=== PATIENT | male | born 1960 | race Caucasian/White ===

== ENCOUNTER → 2021-04-26 12:51 | Outpatient (CLI) | payer MEDICARE, SELFPAY | PROVIDERS: Visit Provider Nurse Practitioner | DX: Z20.822 Contact with and (suspected) exposure to COVID-19 (principal) | CPT/HCPCS: C9803; U0003; U0005 ==

== ENCOUNTER 2021-06-04 11:04 | Emergency (ER) | payer MEDICARE, SELFPAY ==
[2021-06-04] VITALS (8 sets, daily range): BP systolic 115–134; BP diastolic 67–89; PULSE 61–79; RESP 18–20; TEMP 36.8; O2SAT 96–98; BMI 35.2
--- NOTE | 2021-06-04 10:58 | ECG_ITS ---
APPROVED REPORT Exam: Resting ECG HR:86 bpm ECG Measurements Heart Rate 86 AXES NV 166 P 7 QRSd 92 QRS 11 QT 372 T 44 QTc 445 Conclusion Normal sinus rhythm Normal ECG Electronically signed by : Vasiliy Espinoza MD 06/04/2021 15:34:34
--- NOTE | 2021-06-04 11:15 | XR_ITS ---
PROCEDURE INFORMATION: Exam: XR Chest Exam date and time: 06/04/2021 11:15 AM Age: 61 years old Clinical indication: Pain; Chest pressure; Additional info: Chest pain TECHNIQUE: Imaging protocol: XR of the chest. Views: 1 view. COMPARISON: No relevant prior studies available. FINDINGS: Tubes, catheters and devices: Overlying EKG wires Lungs: Unremarkable. No consolidation. Pleural spaces: Unremarkable. No pleural effusion. No pneumothorax. Heart/Mediastinum: Unremarkable. No cardiomegaly. Bones/joints: Unremarkable. IMPRESSION: No acute process
--- NOTE | 2021-06-04 11:18 | HMH.EDGENADL ---
ED Disposition Clinical Impression: Atypical chest pain, Cutaneous abscess of left knee Disposition: Home, Self-Care Condition on Discharge: Good Instructions: DI for Atypical Chest Pain, DI for Skin Abscess Additional Instructions: You are being provided with a list of physicians available for follow-up of your condition. Please call a physician on this list to arrange a follow-up appointment as soon as possible. For your knee abscess: Clean with soap and water daily. Change bandage daily. Take antibiotic as prescribed. Follow-up if not improving in 2 to 3 days. Additional instructions for CHEST PAIN: See your physician or Dr. Vuong, cardiology, as soon as possible for further evaluation. Call for appointment. Return immediately if worsening chest pain, vomiting, shortness of breath, fever, coughing of blood. Prescriptions: clindamycin HCL [Clindamycin HCl] 300 mg PO QID #28 cap Transmission Status: Received by [id number] Referrals: Ty Anand MD [Primary Care Provider] - Sushant Vuong MD [Staff Physician] - - Critical Care Critical Care Time: No Attestation: On , the high probability of a clinically significant, sudden or life threatening deterioration of the following system(s) required my full and direct attention, intervention and personal management. The time I documented below is in addition to time spent performing reported procedures but includes the following listed in this critical care notation. Medical Decision Making - David Inquiry Pt receiving controlled substance: No Vital Signs: 06/04/21 11:05 06/04/21 12:30 06/04/21 13:00 Temperature 98.3 F Temperature Source Oral Pulse Rate 68 66 Pulse Rate [Radial] 79 Respiratory Rate 18 20 Blood Pressure 120/74 115/68 Blood Pressure [Right Arm] 120/82 Blood Pressure Mean 82 88 Blood Pressure Mean [Right Arm] 94 Blood Pressure Position [Right Arm] Sitting 02 Sat by Pulse Oximetry 96 98 97 Oxygen Delivery Method Room Air - Lab Data Lab Results 06/04/21 11:06: WBC 9.7, RBC 4.85, Hgb 14.9, Hct 44.4, MCV 91.7, MCH 30.6, MCHC 33.4, RDW 13.0, Plt Count 295, MPV 8.1, Neut % (Auto) 76.5, Lymph % (Auto) 15.4, Gem % (Auto) 6.4, Eos % (Auto) 1.1, Baso % (Auto) 0.6, Neut # (Auto) 7.4, Lymph # (Auto) 1.5, Gem # (Auto) 0.6, Eos # (Auto) 0.1, Baso # (Auto) 0.1 06/04/21 11:06: Sodium 138, Potassium 4.2, Chloride 101, Carbon Dioxide 28, Anion Gap 13.2, BUN 19, Creatinine 0.90, Estimated Creat Clear 126, Estimated GFR 85, Est GFR ( Amer) 103, Glucose 227 H, Calcium 9.4, Total Bilirubin 0.6, AST 38, ALT 40, Alkaline Phosphatase 91, Troponin I < 0.01, Total Protein 7.8, Albumin 4.4, Globulin 3.4 H, Albumin/Globulin Ratio 1.3 06/04/21 11:06: D-Dimer 0.77 H 06/04/21 14:14: Troponin I < 0.01 Result diagrams: 06/04/21 11:06 06/04/21 11:06 Orders (Tests/Meds): ED MEDICATIONS Discontinued Medications Generic Name Dose Route Start Last Admin Trade Name Freq PRN Reason Stop Dose Admin Clindamycin HCl 300 mg 06/04/21 14:26 06/04/21 14:34 Clindamycin 150mg Capsule PO 06/04/21 14:27 300 mg ONCE ONE Administration Iopamidol 70 ml 06/04/21 13:17 06/04/21 13:18 Iopamidol-370 (76%);100ml Bottle IV 06/04/21 13:18 70 ml ONCE ONE Administration Sodium Chloride 50 ml 06/04/21 13:17 06/04/21 13:18 0.9 % Sodium Chloride 50 Ml Vial IV 06/04/21 13:18 50 ml ONCE ONE Administration Sodium Chloride 10 ml 06/04/21 13:17 06/04/21 13:18 Sodium Chloride 0.9% 10ml Syr (Rad Only) IV 06/04/21 13:18 10 ml ONCE ONE Administration ORDERS Category Date Time Status Troponin I Q3H Lab 06/04/21 17:15 Ordered - CT Data CT Scan: Chest (CTA) Time Received: 13:[address] Reviewed: Yes: I have viewed the radiologist's interpretation Findings Narrative: PROCEDURE INFORMATION: Exam: CTA Chest With Contrast Exam date and time: 06/04/2021 12:09 PM Age: 61 years old
[2021-06-04 11:22] LABS: Basophils # 0.1 K/mm3 (0-0.2); Basophils % 0.6 % (0.1-2.0); Eosinophils # 0.1 K/mm3 (0.0-0.4); Eosinophils % 1.1 % (0.1-12.0); Hematocrit 44.4 % (42.0-52.0); Hemoglobin 14.9 g/dL (14.1-18.0); Lymphocytes # 1.5 K/mm3 (0.7-4.5); Lymphocytes % 15.4 % (10-50); Mean Corpuscular HGB Conc 33.4 g/dL (31.8-35.4); Mean Corpuscular Hemoglobin 30.6 pg (27.0-31.2); Mean Corpuscular Volume 91.7 fl (80-94); Mean Platelet Volume 8.1 fl (7.4-10.4); Monocytes # 0.6 K/mm3 (0.1-1.0); Monocytes % 6.4 % (1.7-9.3); Neutrophils # 7.4 K/mm3 (1.8-7.8); Neutrophils % 76.5 % (37.0-80.0); Platelet Count 295 K/mm3 (142-424); Red Blood Count 4.85 M/mm3 (4.60-6.20); White Blood Count 9.7 K/mm3 (4.8-10.8)
[2021-06-04 11:23] LABS: Chloride 101 mmol/L (98-107); Potassium 4.2 mmoL/L (3.5-5.1); Sodium 138 mmol/L (136-145)
[2021-06-04 11:26] LABS: Alanine Aminotransferase 40 U/L (12-78); Albumin Level 4.4 g/dl (3.5-5.0); Albumin/Globulin Ratio 1.3 (1.1-1.8); Alkaline Phosphatase 91 U/L (38-126); Anion Gap 13.2 mEq/L (5-15); Aspartate Amino Transferase 38 U/L (17-59); Bilirubin,Total 0.6 mg/dl (0.2-1.3); Blood Urea Nitrogen 19 mg/dl (9-20); Carbon Dioxide 28 mmol/L (22.0-30.0); Creatinine Clearance Estimated 126 mL/min (50-200); Estimated Glomerular Filt Rate 85 ml/min (>60); GFR (African American) 103 ML/MIN (>60); Globulin 3.4 g/dL (1.3-3.2); Total Protein,Serum 7.8 g/dl (6.3-8.2)
[2021-06-04 11:27] LABS: Calcium 9.4 mg/dl (8.4-10.2); Glucose 227 mg/dl (74-100)
[2021-06-04 11:39] LABS: Troponin I < 0.01 ng/ml (0.00-0.034)
[2021-06-04 11:58] LABS: D-Dimer 0.77 ug/mL (0.0-0.5)
--- NOTE | 2021-06-04 12:09 | CT_ITS ---
PROCEDURE INFORMATION: Exam: CTA Chest With Contrast Exam date and time: 06/04/2021 12:09 PM Age: 61 years old Clinical indication: Pain; Chest pressure; Additional info: Pleuritic cp, elev d-dimer, R/O pe TECHNIQUE: Imaging protocol: Computed tomographic angiography of the chest with contrast. 3D rendering (Not supervised by radiologist): MIP and/or 3D reconstructed images were created by the technologist. Radiation optimization: All CT scans at this facility use at least one of these dose optimization techniques: automated exposure control; mA and/or kV adjustment per patient size (includes targeted exams where dose is matched to clinical indication); or iterative reconstruction. Contrast material: ISOVUE; Contrast volume: 70 ml; Contrast route: INTRAVENOUS (IV); COMPARISON: CR XR CHEST PORTABLE 06/04/2021 12:42 PM FINDINGS: Pulmonary arteries: No evidence of pulmonary embolus to the segmental level. Aorta: No aneurysm of the aorta. No dissection of the aorta. Lungs: Mild opacities in the lingula may represent atelectasis Pleural spaces: Unremarkable. No pneumothorax. No pleural effusion. Heart: Unremarkable. No cardiomegaly. No pericardial effusion. Lymph nodes: Unremarkable. No enlarged lymph nodes. Kidneys and ureters: 11 mm simple cyst lateral right kidney. . No follow-up imaging recommended . Bones/joints: Broad-based disc bulge at L1/L2 may represent degenerative disc disease Soft tissues: Unremarkable. IMPRESSION: 1. No evidence of pulmonary embolus to the segmental level. 2. No aneurysm of the aorta. 3. No dissection of the aorta. COMMENTS: Consistent with the [employer]'s Incidental Findings Committee white paper (J Am Davion Radiol 2018): Any incidental renal lesion less than 1 cm or classified as too small to characterize, or any incidental cystic renal lesion characterized as simple-appearing, is likely benign. No follow-up imaging is recommended for these lesions per consensus recommendations based on imaging criteria.
[2021-06-04 14:46] LABS: Troponin I < 0.01 ng/ml (0.00-0.034)
== END 2021-06-04 15:16 | disposition home or self-care (01) ==
PROVIDERS: Emergency Provider Emergency Medicine; PCP Family Medicine
DX: L02.416 Cutaneous abscess of left lower limb (principal); R07.89 Other chest pain
CPT/HCPCS: 10060; 71045; 71275; 80053; 84484; 85025; 85378; 87070; 87077; 87186; 87205; 93005; 99283; Q9967

== ENCOUNTER → 2021-08-02 14:56 | Outpatient (CLI) | payer MEDICARE, SELFPAY | PROVIDERS: Visit Provider Nurse Practitioner | DX: Z20.822 Contact with and (suspected) exposure to COVID-19 (principal) | CPT/HCPCS: C9803; U0003; U0005 ==

== ENCOUNTER → 2021-08-03 15:35 | Outpatient (CLI) | payer MEDICARE, SELFPAY ==
--- NOTE | 2021-08-03 15:38 | XR_ITS ---
FINAL REPORT CLINICAL HISTORY: chronic ulcer FINDINGS: RIGHT FOOT Three views of the right foot demonstrate no acute fracture or dislocation. There are mild degenerative changes. There is no acute bony erosion. There are small calcaneal spurs. There are calcifications in the region of the distal Achilles tendon. The soft tissues are unremarkable. IMPRESSION: No acute bony abnormality. Reviewed, Interpreted and Dictated by Eyal Mcdaniels III, MD Transcribed by Marlin Mcginnis Authenticated by Eyal Mcdaniels III, MD on 08/03/2021 04:12:05 PM [facility]
== END ==
PROVIDERS: PCP Internal Medicine Adolescent Medicine; Visit Provider Podiatrist
DX: Z51.89 Encounter for other specified aftercare (principal); M79.671 Pain in right foot
CPT/HCPCS: 73630

== ENCOUNTER 2021-08-26 17:31 | Emergency (ER) | payer MEDICARE, SELFPAY ==
[2021-08-26] VITALS (11 sets, daily range): BP systolic 80–130; BP diastolic 58–78; PULSE 64–110; RESP 11–18; TEMP 37.2–39.3; O2SAT 93–97; BMI 22.4
--- NOTE | 2021-08-26 17:47 | XR_ITS ---
PROCEDURE INFORMATION: Exam: XR Chest Exam date and time: 08/26/2021 5:47 PM Age: 61 years old Clinical indication: Pain; Chest pressure; Additional info: Cp, weakness TECHNIQUE: Imaging protocol: XR of the chest. Views: 1 view. Total images: 1 COMPARISON: CR XR CHEST PORTABLE 06/04/2021 12:42 PM FINDINGS: Lungs: Normal pulmonary expansion. Pulmonary vasculature grossly normal. Questionable patchy alveolar densities in the left base suspicious for atelectasis or pneumonia Pleural spaces: No pleural effusion. No pneumothorax. Heart/Mediastinum: Heart size normal. No tracheal/mediastinal shift. Bones/joints: No acute osseous abnormalities are identified. IMPRESSION: Questionable patchy alveolar density in the left base, atelectasis versus pneumonia.
--- NOTE | 2021-08-26 17:47 | ECG_ITS ---
APPROVED REPORT Exam: Resting ECG HR:114 bpm ECG Measurements Heart Rate 114 AXES KS 162 P 34 QRSd 96 QRS 83 QT 331 T 5 QTc 399 Conclusion SINUS TACHYCARDIA INFERIOR MYOCARDIAL INFARCTION , PROBABLY OLD [40+ ms Q WAVE AND/OR ST/T ABNORMALITY IN II/aVF] ABNORMAL ECG UNCONFIRMED REPORT Electronically signed by : Vasiliy Espinoza MD 08/27/2021 14:33:50
[2021-08-26 17:56] LABS: Basophils # 0.1 K/mm3 (0-0.2); Basophils % 0.5 % (0.1-2.0); Eosinophils # 0.1 K/mm3 (0.0-0.4); Eosinophils % 0.8 % (0.1-12.0); Hematocrit 46.5 % (42.0-52.0); Hemoglobin 15.6 g/dL (14.1-18.0); Lymphocytes # 0.6 K/mm3 (0.7-4.5); Mean Corpuscular HGB Conc 33.6 g/dL (31.8-35.4); Mean Corpuscular Hemoglobin 30.6 pg (27.0-31.2); Mean Corpuscular Volume 91.1 fl (80-94); Mean Platelet Volume 7.8 fl (7.4-10.4); Monocytes # 0.5 K/mm3 (0.1-1.0); Monocytes % 3.5 % (1.7-9.3); Neutrophils # 11.5 K/mm3 (1.8-7.8); Neutrophils % 90.1 % (37.0-80.0); Platelet Count 232 K/mm3 (142-424); Red Blood Count 5.11 M/mm3 (4.60-6.20); Red Cell Distribution Width 13.1 % (11.5-17.5); White Blood Count 12.7 K/mm3 (4.8-10.8)
[2021-08-26 17:59] LABS: MANUAL DIFFERENTIAL MANUAL DIFFERENTIAL (MANUAL DIFF)
[2021-08-26 18:01] LABS: Chloride 103 mmol/L (98-107)
[2021-08-26 18:02] LABS: Potassium 3.9 mmoL/L (3.5-5.1); Sodium 133 mmol/L (136-145)
[2021-08-26 18:04] LABS: Alanine Aminotransferase 50 U/L (12-78); Alkaline Phosphatase 91 U/L (38-126); Aspartate Amino Transferase 45 U/L (17-59); Bilirubin,Total 1.1 mg/dl (0.2-1.3); Blood Urea Nitrogen 19 mg/dl (9-20); Creatinine Clearance Estimated 80 mL/min (50-200); Estimated Glomerular Filt Rate 85 ml/min (>60); GFR (African American) 103 ML/MIN (>60)
[2021-08-26 18:05] LABS: Albumin Level 4.5 g/dl (3.5-5.0); Albumin/Globulin Ratio 1.2 (1.1-1.8); Anion Gap 10.9 mEq/L (5-15); Calcium 8.6 mg/dl (8.4-10.2); Carbon Dioxide 23 mmol/L (22.0-30.0); Globulin 3.8 g/dL (1.3-3.2); Glucose 114 mg/dl (74-100); Total Protein,Serum 8.3 g/dl (6.3-8.2)
--- NOTE | 2021-08-26 18:15 | HMH.EDGENADL ---
ED Disposition Condition on Discharge: Good - Critical Care Critical Care Time: No <Rian Villanueva - Last Filed: 08/26/21 20:24> Condition on Discharge: Good <Dennis Jacques - Last Filed: 08/26/21 22:28> Clinical Impression: Fever Qualifiers: Fever type: unspecified Qualified Code(s): R50.9 - Fever, unspecified Chest pain Qualifiers: Chest pain type: unspecified Qualified Code(s): R07.9 - Chest pain, unspecified Disposition: Home, Self-Care Additional Instructions: Please return to the ED with any new or worsening symptoms. Prescriptions: Cefdinir [Omnicef 300mg Capsule] 300 mg PO BID #14 cap Transmission Status: Pending to [id number] Referrals: Vasiliy Espinoza MD [Primary Care Provider] - Attestation: On 08/26/21, the high probability of a clinically significant, sudden or life threatening deterioration of the following system(s) required my full and direct attention, intervention and personal management. The time I documented below is in addition to time spent performing reported procedures but includes the following listed in this critical care notation. Medical Decision Making - David Inquiry Pt receiving controlled substance: No - Lab Data Result diagrams: 08/26/21 17:35 08/26/21 17:35 - Radiology Data #1 Image(s): Chest Image Reviewed: Yes I reviewed the patient's radiology image, Yes I have reviewed radiologist's interpretation - CT Data CT Scan: Chest Time Received: 20:[address] Reviewed: Yes: I have viewed the radiologist's interpretation - Physician Consults Physician Consulted: Carolann Time: 18:50 Reason -: Cardiology Eval/Care Comment/Response: EKG transmitted to him along with old EKG and he has reviewed. Requests CT angiogram of chest. Additional Consult: Navi Time: 19:15 Reason -: Pt condition Additional Consult: Carolann Time: 20:20 Reason -: Cardiology Eval/Care Comment/Response: Advised of negative CTA. From a cardiology standpoint, he feels patient can be discharged if second troponin is normal if there is no other reason to admit regarding his fever. <Rian Villanueva - Last Filed: 08/26/21 20:24> - Medical Records Medical records reviewed: Yes: I reviewed the patient's medical records. - Lab Data Result diagrams: 08/26/21 17:35 08/26/21 17:35 <Dennis Jacques - Last Filed: 08/26/21 22:28> Vital Signs: 08/26/21 17:31 08/26/21 18:00 08/26/21 19:00 Temperature 102.8 F H Temperature Source Oral Pulse Rate 108 H 107 H Pulse Rate [Right Radial] 110 H Respiratory Rate 18 14 13 Blood Pressure 125/74 107/65 L Blood Pressure [Right Arm] 130/78 Blood Pressure Mean [Right Arm] 95 Blood Pressure Source Blood Pressure Source [Right Arm] Automatic Cuff Blood Pressure Position Blood Pressure Position [Right Arm] Sitting 02 Sat by Pulse Oximetry 94 L 93 L 93 L Oxygen Delivery Method Room Air Nasal Cannula Room Air Oxygen Flow Rate (LPM) 2 08/26/21 19:31 08/26/21 20:02 08/26/21 20:30 Temperature Temperature Source Pulse Rate 88 98 H 64 Pulse Rate [Right Radial] Respiratory Rate 15 12 Blood Pressure 99/64 L 80/60 L 93/63 L Blood Pressure [Right Arm] Blood Pressure Mean [Right Arm] Blood Pressure Source Manual Cuff/ Auscultation Blood Pressure Source [Right Arm] Blood Pressure Position Sitting Blood Pressure Position [Right Arm] 02 Sat by Pulse Oximetry 95 93 L 94 L Oxygen Delivery Method Room Air Room Air Oxygen Flow Rate (LPM) 08/26/21 21:01 08/26/21 21:08 08/26/21 21:30 Temperature 99.4 F Temperature Source Oral Pulse Rate 86 67 Pulse Rate [Right Radial] Respiratory Rate 12 18 Blood Pressure 92/62 L 92/63 L Blood Pressure [Right Arm] Blood Pressure Mean [Right Arm] Blood Pressure Source Blood Pressure Source [Right Arm] Blood Pressure Position Blood Pressure Position [Right Arm] 02 Sat by Pulse Oximetry 97 96 Oxygen Delivery Method Room Air R
[2021-08-26 18:17] LABS: Troponin I 0.02 ng/ml (0.00-0.034)
[2021-08-26 18:18] LABS: Lymphocytes % 4 % (10-50); Monocytes % 1 % (2-9); Neutrophils % 86 % (42-76); Platelet Estimate Normal; RBC Morphology Normal; Total Cells Counted 100
--- NOTE | 2021-08-26 18:53 | CT_ITS ---
PROCEDURE INFORMATION: Exam: CTA Chest With Contrast Exam date and time: 08/26/2021 6:53 PM Age: 61 years old Clinical indication: Sternal or substernal pain; Prior surgery; Surgery date: 6+ months; Surgery type: Cardiac stents; Additional info: Cp, R/O pe TECHNIQUE: Imaging protocol: Computed tomographic angiography of the chest with contrast. 3D rendering (Not supervised by radiologist): MIP and/or 3D reconstructed images were created by the technologist. Total images: 323 Radiation optimization: All CT scans at this facility use at least one of these dose optimization techniques: automated exposure control; mA and/or kV adjustment per patient size (includes targeted exams where dose is matched to clinical indication); or iterative reconstruction. Contrast material: ISOVUE 370; Contrast volume: 70 ml; Contrast route: INTRAVENOUS (IV); COMPARISON: CT ANGIO CHEST PE PROTOCOL 06/04/2021 1:14 PM FINDINGS: Pulmonary arteries: The pulmonary arteries enhance appropriately with no evidence of pulmonary embolism. Aorta: The aorta enhances appropriately without evidence of dissection or aneurysm. No mediastinal hematoma. Thyroid: The visualized thyroid gland demonstrates no gross abnormality. Lungs: No acute tracheobronchial abnormalities. No gross pulmonary infiltrates or edema pattern. Minor subsegmental atelectasis in the lingula and dependent lung bases. No pulmonary mass lesions are identified. Pleural spaces: No pleural effusion. No pneumothorax. Heart: Heart size normal. Hyperdensity in the proximal RCA consistent with prior stent placement. The distal vessel enhances appropriately without gross evidence of stent occlusion. Mild calcific atherosclerosis in the LAD. No pericardial effusion. Mediastinal space: The esophagus is largely contracted but demonstrates no gross abnormality. Lymph nodes: No supraclavicular or axillary adenopathy. No mediastinal or hilar adenopathy. Borderline enlarged periportal nodes measuring up to 10 mm short axis, nonspecific. Pancreas: Moderate fatty atrophy of the pancreas without acute abnormality. No pancreatic ductal dilatation. Bones/joints: No acute osseous abnormalities are identified. Osteopenia. Moderate thoracic spondylosis. Soft tissues: The soft tissues of the chest wall demonstrate no acute abnormality. IMPRESSION: 1. No evidence of pulmonary embolism or aortic dissection. 2. No acute process is evident. 3. Borderline enlarged periportal nodes, nonspecific. 4. Additional nonemergent findings detailed above.
[2021-08-26 19:52] LABS: Lactic Acid 1.4 mmol/L (0.7-2.1)
[2021-08-26 20:08] LABS: Coronavirus 19, PCR Not Detected (NotDetected); Influenza A, PCR Not Detected (NotDetected); Influenza B, PCR Not Detected (NotDetected)
[2021-08-26 20:20] LABS: Microscopic, Urine URINE MICROSCOPIC (MICROSCOPIC)
[2021-08-26 20:22] LABS: Appearance,Urine SL CLOUDY (Clear); Bilirubin,Urine Negative (Negative); Blood, Urine Negative (Negative); Color,Urine YELLOW (Yellow); Glucose,Urine (UA) Negative (Negative); Ketones,Urine Negative (Negative); Leukocyte Esterase,Urine Negative (Negative); Nitrate,Urine Negative (Negative); PH,Urine 5.5 (5.0-8.5); Protein,Urine TRACE (Negative); Urobilinogen,Urine 0.2 EU/dl (0.2)
[2021-08-26 20:32] LABS: Bacteria,Urine Trace /lpf; RBC,Urine Occasional #/hpf (0-3); Squamous Epithelial Cell,Urine Occasional #/hpf (0-5)
[2021-08-26 20:33] LABS: Sperm,Urine 3+ /lpf
[2021-08-26 21:42] LABS: Troponin I 0.04 ng/ml (0.00-0.034)
--- NOTE | 2021-08-26 22:16 | PC.NURSE ---
KEILA DURAN speaking with Dr. Vuong.
== END 2021-08-26 22:51 | disposition home or self-care (01) ==
PROVIDERS: Emergency Medicine; Emergency Provider Student in an Organized Health Care Education/Training Program; PCP Internal Medicine Adolescent Medicine
DX: R07.9 Chest pain, unspecified (principal); R42 Dizziness and giddiness; Z20.822 Contact with and (suspected) exposure to COVID-19; I10 Essential (primary) hypertension; E78.5 Hyperlipidemia, unspecified
CPT/HCPCS: 71045; 71275; 80053; 81001; 83605; 84484; 85007; 85025; 87040; 93005; 99283; C9803; J0696; U0003; U0005

== ENCOUNTER 2021-08-27 04:55 | Emergency (ER) | payer MEDICARE, SELFPAY ==
[2021-08-27 04:57] VITALS: BP 164/106; PULSE 103; RESP 18; TEMP 37; O2SAT 99; BMI 35.9
--- NOTE | 2021-08-27 05:05 | ECG_ITS ---
APPROVED REPORT Exam: Resting ECG HR:89 bpm ECG Measurements Heart Rate 89 AXES ME 178 P 16 QRSd 105 QRS 59 QT 374 T 57 QTc 420 Conclusion SINUS RHYTHM NORMAL ECG UNCONFIRMED REPORT Electronically signed by : Vasiliy Espinoza MD 08/30/2021 21:12:11
[2021-08-27 05:18] LABS: Basophils # 0.1 K/mm3 (0-0.2); Basophils % 0.8 % (0.1-2.0); Eosinophils # 0.2 K/mm3 (0.0-0.4); Eosinophils % 1.7 % (0.1-12.0); Hematocrit 48.9 % (42.0-52.0); Hemoglobin 15.7 g/dL (14.1-18.0); Lymphocytes # 0.8 K/mm3 (0.7-4.5); Lymphocytes % 7.3 % (10-50); Mean Corpuscular HGB Conc 32.1 g/dL (31.8-35.4); Mean Corpuscular Hemoglobin 30.1 pg (27.0-31.2); Mean Corpuscular Volume 93.8 fl (80-94); Mean Platelet Volume 7.9 fl (7.4-10.4); Monocytes # 0.3 K/mm3 (0.1-1.0); Monocytes % 2.4 % (1.7-9.3); Neutrophils # 10.1 K/mm3 (1.8-7.8); Neutrophils % 87.9 % (37.0-80.0); Platelet Count 202 K/mm3 (142-424); Red Blood Count 5.21 M/mm3 (4.60-6.20); Red Cell Distribution Width 13.3 % (11.5-17.5); White Blood Count 11.5 K/mm3 (4.8-10.8)
[2021-08-27 05:20] LABS: MANUAL DIFFERENTIAL MANUAL DIFFERENTIAL (MANUAL DIFF)
[2021-08-27 05:26] LABS: Lymphocytes % 10 % (10-50); Monocytes % 2 % (2-9); Neutrophils % 81 % (42-76); Total Cells Counted 100
[2021-08-27 05:27] LABS: Platelet Estimate Normal; RBC Morphology Normal
[2021-08-27 05:29] LABS: Anion Gap 12.7 mEq/L (5-15); Blood Urea Nitrogen 25 mg/dl (9-20); Calcium 8.7 mg/dl (8.4-10.2); Carbon Dioxide 28 mmol/L (22.0-30.0); Chloride 102 mmol/L (98-107); Creatinine Clearance Estimated 129 mL/min (50-200); Estimated Glomerular Filt Rate 75 ml/min (>60); GFR (African American) 91 ML/MIN (>60); Glucose 148 mg/dl (74-100); Potassium 3.7 mmoL/L (3.5-5.1); Sodium 139 mmol/L (136-145)
[2021-08-27 05:30] VITALS: BP 121/65; PULSE 84; RESP 15; O2SAT 99
--- NOTE | 2021-08-27 05:30 | HMH.EDGENADL ---
ED Disposition Clinical Impression: Chills, Atypical chest pain Disposition: Admitted As Inpatient Condition on Discharge: Good Additional Instructions: Please return to the ED with any new or worsening symptoms. Referrals: Vasiliy Espinoza MD [Primary Care Provider] - - Critical Care Critical Care Time: No Attestation: On , the high probability of a clinically significant, sudden or life threatening deterioration of the following system(s) required my full and direct attention, intervention and personal management. The time I documented below is in addition to time spent performing reported procedures but includes the following listed in this critical care notation. Medical Decision Making - Medical Records Medical records reviewed: Yes: I reviewed the patient's medical records. - David Inquiry Pt receiving controlled substance: No Vital Signs: 08/27/21 04:57 08/27/21 05:30 Temperature 98.6 F Temperature Source Oral Pulse Rate 84 Pulse Rate [Left Radial] 103 H Respiratory Rate 18 15 Blood Pressure 121/65 Blood Pressure [Right Arm] 164/106 H Blood Pressure Mean [Right Arm] 125 Blood Pressure Source Automatic Cuff Blood Pressure Position Sitting Blood Pressure Position [Right Arm] Sitting 02 Sat by Pulse Oximetry 99 99 Oxygen Delivery Method Room Air Nasal Cannula Oxygen Flow Rate (LPM) 2 - Lab Data Lab Results 08/27/21 05:11: WBC 11.5 H, RBC 5.21, Hgb 15.7, Hct 48.9, MCV 93.8, MCH 30.1, MCHC 32.1, RDW 13.3, Plt Count 202, MPV 7.9, Neut % (Auto) 87.9 H, Lymph % (Auto) 7.3 L, [place] % (Auto) 2.4, Eos % (Auto) 1.7, Baso % (Auto) 0.8, Neut # (Auto) 10.1 H, Lymph # (Auto) 0.8, [place] # (Auto) 0.3, Eos # (Auto) 0.2, Baso # (Auto) 0.1, Total Counted 100, Neutrophils % (Manual) 81 H, Band Neutrophils % 7.0, Lymphocytes % (Manual) 10, Monocytes % (Manual) 2, Platelet Estimate Normal, RBC Morphology Normal 08/27/21 05:11: Sodium 139, Potassium 3.7, Chloride 102, Carbon Dioxide 28, Anion Gap 12.7, BUN 25 H D, Creatinine 1.00, Estimated Creat Clear 129, Estimated GFR 75, Est GFR ( Amer) 91, Glucose 148 H D, Calcium 8.7, Troponin I 0.02 Result diagrams: 08/27/21 05:11 08/27/21 05:11 Orders (Tests/Meds): ORDERS Category Date Time Status Troponin I Q3H Lab 08/27/21 08:15 Ordered Troponin I Q3H Lab 08/27/21 11:15 Ordered Medical Decision Narrative: Pt is a 61 year old male who presents the ED today for evaluation of chills, hypertension. Patient with recent stay in the emergency department with extensive work-up, still relatively well-appearing today, however appears more tired this morning, endorsing some chest discomfort, rigors this morning. Vague and reviewed patient with no evidence of fever source of physical exam had extensive chest work-up yesterday with no evidence of pneumonia, has a small toe wound which is unlikely to be causing his symptoms, and viral panel was negative yesterday, only positive for a UTI. Will further evaluate with CBC, CMP, troponin Troponin similar to yesterday's evaluation at 0.02, other lab evaluation actually is improved from yesterday white count slightly decreased as well as neutrophil count. Blood pressure on reassessment has come down to 120/86 without intervention. Have considered admitting for inpatient monitoring, however given the patient has remained stable with no alterations of vital signs, no change for the worse on his blood work, and extensive work-up yesterday doubt there is anything that would be able to be done for him inpatient, has spoken with Dr. Mcelroy about this as well, as he is familiar with the case from yesterday, and he agrees. We will have patient go home, I will personally follow-up with him later this afternoon to ensure that he is doing well. Given return precautions return to the ED with new or worsening symptoms and is verbalized understanding with this plan. General Adult HPI - General Chief complaint: Chest Pain Stated
[2021-08-27 05:41] LABS: Troponin I 0.02 ng/ml (0.00-0.034)
--- NOTE | 2021-08-27 05:55 | PC.NURSE ---
paging chapin at this time
[2021-08-27 06:00] VITALS: BP 124/69; PULSE 81; RESP 17; O2SAT 96
[2021-08-27 06:34] VITALS: BP 123/70; PULSE 80; RESP 17; TEMP 36.8; O2SAT 94
== END 2021-08-27 06:42 | disposition home or self-care (01) ==
LOC: ER 05:35
PROVIDERS: Emergency Provider Student in an Organized Health Care Education/Training Program; PCP Internal Medicine Adolescent Medicine
DX: R07.89 Other chest pain (principal); I10 Essential (primary) hypertension; I25.10 Atherosclerotic heart disease of native coronary artery without angina pectoris; E78.5 Hyperlipidemia, unspecified
CPT/HCPCS: 80048; 84484; 85007; 85025; 93005; 99283

== ENCOUNTER → 2021-08-28 09:00 | Outpatient (CLI) | payer MEDICARE, SELFPAY ==
[2021-08-28 09:33] LABS: Basophils # 0.2 K/mm3 (0-0.2); Basophils % 2.9 % (0.1-2.0); Eosinophils # 0.2 K/mm3 (0.0-0.4); Eosinophils % 3.2 % (0.1-12.0); Hematocrit 44.8 % (42.0-52.0); Hemoglobin 14.4 g/dL (14.1-18.0); Lymphocytes # 1.4 K/mm3 (0.7-4.5); Lymphocytes % 23.9 % (10-50); Mean Corpuscular HGB Conc 32.1 g/dL (31.8-35.4); Mean Corpuscular Hemoglobin 30.1 pg (27.0-31.2); Monocytes # 0.6 K/mm3 (0.1-1.0); Neutrophils # 3.4 K/mm3 (1.8-7.8); Neutrophils % 59.9 % (37.0-80.0); Platelet Count 201 K/mm3 (142-424); Red Blood Count 4.76 M/mm3 (4.60-6.20); Red Cell Distribution Width 13.3 % (11.5-17.5); White Blood Count 5.7 K/mm3 (4.8-10.8)
[2021-08-28 10:14] LABS: Chloride 104 mmol/L (98-107); Potassium 4.3 mmoL/L (3.5-5.1); Sodium 135 mmol/L (136-145)
[2021-08-28 10:17] LABS: Alanine Aminotransferase 37 U/L (12-78); Albumin Level 3.9 g/dl (3.5-5.0); Albumin/Globulin Ratio 1.3 (1.1-1.8); Alkaline Phosphatase 67 U/L (38-126); Anion Gap 9.3 mEq/L (5-15); Aspartate Amino Transferase 39 U/L (17-59); Bilirubin,Total 0.4 mg/dl (0.2-1.3); Blood Urea Nitrogen 15 mg/dl (9-20); Carbon Dioxide 26 mmol/L (22.0-30.0); Estimated Glomerular Filt Rate 98 ml/min (>60); GFR (African American) 118 ML/MIN (>60); Globulin 3.1 g/dL (1.3-3.2)
[2021-08-28 10:18] LABS: Calcium 8.1 mg/dl (8.4-10.2); Glucose 136 mg/dl (74-100)
[2021-08-28 10:22] LABS: C-Reactive Protein 47.9 mg/L (0-4)
[2021-08-28 10:46] LABS: Hemoglobin A1C 6.4 % (4.0-6.0)
[2021-08-28 10:48] LABS: Erythrocyte Sedimentation Rate 22 mm/hr (0-20)
== END ==
PROVIDERS: PCP Internal Medicine Adolescent Medicine; Visit Provider Podiatrist
DX: R73.9 Hyperglycemia, unspecified (principal); Z51.89 Encounter for other specified aftercare; L97.519 Non-pressure chronic ulcer of other part of right foot with unspecified severity
CPT/HCPCS: 36415; 80053; 83036; 85025; 85651; 86140; 87070; 87077; 87102; 87186; 87205; 87206

== ENCOUNTER → 2021-09-01 07:48 | Outpatient (CLI) | payer MEDICARE, SELFPAY ==
--- NOTE | 2021-09-01 07:48 | MR_ITS ---
FINAL REPORT CLINICAL HISTORY: non-healing ulcer, 2nd toe @ tip pf toe x's 1 year. pt is not a diabetic. FINDINGS: Multiplanar MR imaging of the right foot was performed with and without contrast. There is bone marrow edema in the distal second phalanx which may be reactive. There is no evidence of marrow replacement on the T1-weighted images to suggest osteomyelitis. There are mild degenerative changes of the first metatarsophalangeal joint. There is thickening of the posterior plantar aponeurosis consistent with plantar fasciitis. There is also thickening of the distal Achilles tendon consistent with tendinitis with a partial insertional tear. There is contrast enhancement of the distal second toe consistent with inflammation or cellulitis. IMPRESSION: No evidence to suggest osteomyelitis. Plantar fasciitis. Distal Achilles tendinitis with a partial insertional tear. Inflammation or cellulitis of the distal second toe. Reviewed, Interpreted and Dictated by Eyal Mcdaniels III, MD Transcribed by Emiliana Holman Authenticated by Eyal Mcdaniels III, MD on 09/01/2021 09:51:33 AM [facility]
--- NOTE | 2021-09-01 08:03 | US_ITS ---
FINAL REPORT CLINICAL HISTORY: non healing ulcer,REST PAIN, CLAUDICATION,CAD FINDINGS: ANKLE-BRACHIAL PRESSURE INDICES Pressure indices are as follows: RIGHT LOWER EXTREMITY: Ankle-brachial pressure index: 1.33 Comments: Normal LEFT LOWER EXTREMITY: Ankle-brachial pressure index: 1.20 Comments: Normal CONCLUSION: No evidence of significant obstructive peripheral vascular disease of the lower extremities Reviewed, Interpreted and Dictated by Eyal Mcdaniels III, MD Transcribed by Marlin Mcginnis Authenticated by Eyal Mcdaniels III, MD on 09/01/2021 10:09:35 AM [facility]
== END ==
PROVIDERS: PCP Internal Medicine Adolescent Medicine; Visit Provider Podiatrist
DX: L97.519 Non-pressure chronic ulcer of other part of right foot with unspecified severity (principal); L97.512 Non-pressure chronic ulcer of other part of right foot with fat layer exposed; R09.89 Other specified symptoms and signs involving the circulatory and respiratory systems
CPT/HCPCS: 73720; 93923; A9576

== ENCOUNTER → 2021-09-12 09:50 | Outpatient (CLI) | payer MEDICARE, SELFPAY ==
[2021-09-12 10:28] LABS: Basophils # 0.2 K/mm3 (0-0.2); Basophils % 3.4 % (0.1-2.0); Eosinophils # 0.3 K/mm3 (0.0-0.4); Eosinophils % 4.5 % (0.1-12.0); Hematocrit 46.8 % (42.0-52.0); Hemoglobin 15.1 g/dL (14.1-18.0); Lymphocytes # 1.4 K/mm3 (0.7-4.5); Lymphocytes % 23.9 % (10-50); Mean Corpuscular HGB Conc 32.3 g/dL (31.8-35.4); Mean Corpuscular Hemoglobin 29.9 pg (27.0-31.2); Mean Corpuscular Volume 92.4 fl (80-94); Mean Platelet Volume 8.1 fl (7.4-10.4); Monocytes # 0.4 K/mm3 (0.1-1.0); Monocytes % 7.1 % (1.7-9.3); Neutrophils # 3.5 K/mm3 (1.8-7.8); Neutrophils % 61.1 % (37.0-80.0); Platelet Count 283 K/mm3 (142-424); Red Blood Count 5.06 M/mm3 (4.60-6.20); Red Cell Distribution Width 13.3 % (11.5-17.5); White Blood Count 5.7 K/mm3 (4.8-10.8)
[2021-09-12 10:52] LABS: Chloride 102 mmol/L (98-107); Potassium 4.3 mmoL/L (3.5-5.1); Sodium 136 mmol/L (136-145)
[2021-09-12 10:54] LABS: Alanine Aminotransferase 60 U/L (12-78); Aspartate Amino Transferase 47 U/L (17-59); Blood Urea Nitrogen 20 mg/dl (9-20); Estimated Glomerular Filt Rate 98 ml/min (>60); GFR (African American) 118 ML/MIN (>60)
[2021-09-12 10:55] LABS: Albumin Level 4.2 g/dl (3.5-5.0); Albumin/Globulin Ratio 1.3 (1.1-1.8); Alkaline Phosphatase 70 U/L (38-126); Anion Gap 12.3 mEq/L (5-15); Bilirubin,Total 0.5 mg/dl (0.2-1.3); Calcium 8.2 mg/dl (8.4-10.2); Carbon Dioxide 26 mmol/L (22.0-30.0); Globulin 3.2 g/dL (1.3-3.2); Glucose 143 mg/dl (74-100); Total Protein,Serum 7.4 g/dl (6.3-8.2)
[2021-09-12 11:01] LABS: C-Reactive Protein 2.4 mg/L (0-4)
[2021-09-12 12:59] LABS: Erythrocyte Sedimentation Rate 1 mm/hr (0-20)
== END ==
PROVIDERS: Visit Provider Podiatrist
DX: L97.513 Non-pressure chronic ulcer of other part of right foot with necrosis of muscle (principal)
CPT/HCPCS: 36415; 80053; 85025; 85651; 86140

== ENCOUNTER → 2021-09-18 08:59 | Outpatient (CLI) | payer MEDICARE, SELFPAY | PROVIDERS: Visit Provider Podiatrist | DX: Z01.812 Encounter for preprocedural laboratory examination (principal); Z11.52 Encounter for screening for COVID-19; L97.512 Non-pressure chronic ulcer of other part of right foot with fat layer exposed | CPT/HCPCS: C9803; U0003; U0005 ==

== ENCOUNTER 2021-09-20 08:47 | Day surgery (SDC) | payer MEDICARE, SELFPAY ==
[2021-09-20] VITALS (13 sets, daily range): BP systolic 93–129; BP diastolic 47–81; PULSE 50–69; RESP 18; O2SAT 94–98; BMI 35.8
--- NOTE | 2021-09-20 10:00 | IR_ITS ---
APPROVED REPORT Patient Location: Outpatient Shoe Polisher: ELIZA Littlejohn RT (R) PROCEDURES Left heart catheterization Left ventriculogram Selective coronary angiogram Drug-eluting stent deployment to the proximal ID INDICATION Coronary artery disease, Abnormal Myoview with anterior and anteroapical ischemia, Angina pectoris Informed consent was obtained prior to the procedure. COMPLICATIONS None Estimated Blood Loss: Less than 10 mls TECHNIQUE One percent lidocaine used to anesthetize the right anterior aspect of the wrist. The right radial artery was accessed via the Seldinger technique. A 6 Wallisian sheath was placed in the right radial artery. 2.5 mg of verapamil, 800 mcg of nitroglycerin, 1mg Lidocaine and 5000 U Heparin were given through the arterial sheath. The papa catheter was also used to perform left heart catheterization, left ventriculogram and selective coronary angiogram. At the end the diagnostic angiogram therapeutic heparin was administered. A 6 Wallisian JR 3 guide catheter was placed in the left main artery followed by a Choice PT extra-support wire. 3 mm x 18 mm resolute Andrew stent was deployed at 18 norman reducing the stenosis. Subsequent angiography demonstrated the proximal segment was likely slightly oversized and I was uncomfortable with the degree of stepdown preceding the stent. Because of this a 2.5 x 12 mm resolute [place] stent was placed proximal to this and deployed at 20 norman. Following this stent with a 3 mm balloon was placed back into the 2 stents and then deployed at 20 norman to post dilate. Excellent angiograph results were obtained with ERIKA-3 flow being present before and after the procedure. At the end the procedure the apparatus was removed the sheath was removed and hemostasis was achieved using TR banding patient was transferred to the postop already in stable condition ANGIOGRAPHIC RESULTS The left main artery Normal The left anterior descending artery Has proximal tandem 50% stenoses with mild mid vessel atheromatous plaque nothing greater than 10 to 20% The circumflex artery Nondominant with mild diffuse 10 to 20% atheromatous plaque The right coronary artery Is a dominant vessel and has a stent in the proximal segment was widely patent free of in-stent restenosis. There are tubular 10 to 20% stenosis both proximal and distal to the stent. The CEDILLO ventriculogram reveals Normal 65% The left ventricular end-diastolic pressure 10 mmHg IMPRESSION Large anterior apical defect on the Myoview accompanied by 50% tandem proximal LAD stenoses. Successful stent to the proximal ID hemodynamically severe disease reduced to 0% with 2 drug-eluting stents Patent stent in the right artery coronary Normal ejection fraction Normal left ventricular end-diastolic pressure PLAN 1. Dual antiplatelet therapy 2. Risk factor modification 3. Cardiac rehabilitation 4. Avoidance of tobacco products 5. LDL of 55 to be achieved with high intensity statin Electronically signed by : Sushant Vuong MD 09/20/2021 15:22:35
--- NOTE | 2021-09-20 14:36 | HMH.PHACLD ---
Karlo Willett has received discharge medication counseling on the following medications: ASPIRIN BRILINTA (NEW) LISINOPRIL ATORVASTATIN NEW PRESCRIPTION FOR BRILINTA WAS FILLED BY CLINIC PHARMACY. HOLDING BETA SHAUN AT THIS TIME DUE TO BRADYCARDIA. PATIENT VERBALIZED UNDERSTANDING AND HAD NO QUESTIONS AT THIS TIME. -ERASMO DAVIS, PHARMD
[2021-09-20 15:03] LABS: CATHL Activated Clotting Time 380 SEC (74-125)
== END 2021-09-20 15:00 | disposition home or self-care (01) ==
PROVIDERS: PCP Internal Medicine Adolescent Medicine; Visit Provider Internal Medicine
DX: I25.10 Atherosclerotic heart disease of native coronary artery without angina pectoris; E78.5 Hyperlipidemia, unspecified; I10 Essential (primary) hypertension; I25.2 Old myocardial infarction; R94.31 Abnormal electrocardiogram [ECG] [EKG]; R94.39 Abnormal result of other cardiovascular function study; Z79.899 Other long term (current) drug therapy; K21.9 Gastro-esophageal reflux disease without esophagitis; Z79.01 Long term (current) use of anticoagulants
CPT/HCPCS: 85347; 92928; 93458; 99152; 99153; C1725; C1769; C1876; C9600; J1644; Q9967

== ENCOUNTER → 2021-09-26 12:38 | Outpatient (CLI) | payer MEDICARE, SELFPAY ==
[2021-09-26 13:13] LABS: Basophils % 0.5 % (0.1-2.0); Eosinophils # 0.3 K/mm3 (0.0-0.4); Eosinophils % 3.8 % (0.1-12.0); Hematocrit 45.9 % (42.0-52.0); Hemoglobin 15.2 g/dL (14.1-18.0); Lymphocytes # 1.5 K/mm3 (0.7-4.5); Lymphocytes % 21.5 % (10-50); Mean Corpuscular Hemoglobin 30.5 pg (27.0-31.2); Mean Corpuscular Volume 92.4 fl (80-94); Mean Platelet Volume 7.6 fl (7.4-10.4); Monocytes # 0.4 K/mm3 (0.1-1.0); Monocytes % 5.7 % (1.7-9.3); Neutrophils # 4.9 K/mm3 (1.8-7.8); Neutrophils % 68.5 % (37.0-80.0); Platelet Count 343 K/mm3 (142-424); Red Blood Count 4.97 M/mm3 (4.60-6.20); Red Cell Distribution Width 13.3 % (11.5-17.5); White Blood Count 7.1 K/mm3 (4.8-10.8)
[2021-09-26 14:00] LABS: Erythrocyte Sedimentation Rate 20 mm/hr (0-20)
[2021-09-26 14:18] LABS: Chloride 104 mmol/L (98-107); Potassium 4.3 mmoL/L (3.5-5.1); Sodium 138 mmol/L (136-145)
[2021-09-26 14:20] LABS: Alanine Aminotransferase 72 U/L (12-78); Blood Urea Nitrogen 20 mg/dl (9-20); Estimated Glomerular Filt Rate 85 ml/min (>60); GFR (African American) 103 ML/MIN (>60)
[2021-09-26 14:21] LABS: Albumin Level 4.4 g/dl (3.5-5.0); Albumin/Globulin Ratio 1.3 (1.1-1.8); Alkaline Phosphatase 85 U/L (38-126); Anion Gap 13.3 mEq/L (5-15); Aspartate Amino Transferase 68 U/L (17-59); Bilirubin,Total 0.6 mg/dl (0.2-1.3); Carbon Dioxide 25 mmol/L (22.0-30.0); Globulin 3.4 g/dL (1.3-3.2); Glucose 117 mg/dl (74-100); Total Protein,Serum 7.8 g/dl (6.3-8.2)
[2021-09-26 14:27] LABS: C-Reactive Protein 5.5 mg/L (0-4)
== END ==
PROVIDERS: Visit Provider Podiatrist
DX: Z01.812 Encounter for preprocedural laboratory examination (principal); Z11.52 Encounter for screening for COVID-19; L97.513 Non-pressure chronic ulcer of other part of right foot with necrosis of muscle
CPT/HCPCS: 36415; 80053; 85025; 85651; 86140; C9803; U0003; U0005

== ENCOUNTER 2021-09-27 06:07 | Day surgery (SDC) | payer MEDICARE, SELFPAY ==
[2021-09-18 13:27] VITALS: BMI 35.2
[2021-09-27 06:27] VITALS: BP 143/77; PULSE 65; RESP 18; TEMP 36.2; O2SAT 97
--- NOTE | 2021-09-27 07:09 | HMH.ANESCL ---
[facility] Anesthesia Checklist - Patient Identification Patient Identification: Arm Band - Structural Data Admitted From: Home Planned Operative Procedure/s: Right Partial Toe Amputation Consent for Planned Operative Procedure(s) Verified: Yes Verified Documents: Surgical Consent, History and Physical - NPO Status Verified Time NPO: 00:00 - Additional verifications Anesthesia Reactions: No Hx Blood Transfusions: No Blood Transfusion Reaction: No - Airway Assessment C-Spine Mobility Assessed: Yes (mp2) TMJ Mobility Assessed: Yes Dentition: Good Dentition - Neurological Assessment Level of Consciousness: Awake, Alert - Anesthesia Plan Anesthesia Risk discussed: Yes Anesthesia Plan: Verified ASA Class: III Anesthesia Type: MAC [facility] History I have reviewed the patient's past medical history: Yes Medical History: Reports:: Atherosclerotic Heart Disease, Gastroesophageal Reflux Disease(GERD), Hyperlipidemia, MRSA, Myocardial Infarction Denies:: Cancer, Diabetes Mellitus Type 1, Diabetes Mellitus Type 2, Internal Pacemaker, Seizures *Have you ever received a pneumonia vaccine?: No *Have you received a flu vaccine this season?: Yes Other Medical History: Reports: Arthritis, Cataracts. Denies: Blood Transfusion Reaction Anesthesia experience/problems:: nac Laterality Cases: Left: Arthroscopy Knee, Bilateral: Cataract Other Surgeries: Yes: Cardiac Surgery, Colonoscopy, Sinus Surgery. No: Pacemaker Amputation: No Fractures: Yes (RIBS) - *Social History Last grade of school completed: High school graduate Smoking Status: Never smoker Alcohol Intake: never Substance Use Type: denies use *Occupational Status:: employed Housing: house Household Members: spouse, family *Travel in the last 8 weeks: None Family Hx:: Asthma, Heart Attack
--- NOTE | 2021-09-27 07:39 | HMH.OPNOTE ---
Date of procedure: 09/27/21 Pre-op Diagnosis:: 1. Right 2nd toe cellulitis 2. Right 2nd toe ulcer 3. Right 2nd toe osteomyelitis Post-op Diagnosis:: Same Procedure performed:: 1. Right 2nd toe (partial) amputation (with ulcer excision) 2. Right foot incision and drainage Surgeon:: Anali Armendariz DPM Anesthesia: MAC, local (0.5% marcaine plain) Estimated blood loss (mL): 5 Clinical Note:: New images were discussed with the patient. We discussed conservative versus surgical treatment options. Discussed that the MRI does not show obvious osteomyelitis however there is inflammation and cellulitis. I am still suspicious since the patient has had the wound for over 1 year. We discussed doing a bone biopsy. Patient is done dealing with this toe and wants it gone . We discussed conservative care including continued oral vs IV antibiotics and local wound care versus surgical incision and drainage, ulcer excision and partial toe amputation. Patient understands that they could have wound healing complications including delayed healing and infection. We discussed that if the wound does not heal, it is possible that they may need further debridement. Patient understands if infection spreads into the bone, it may warrant proximal amputation and could result in further loss of digits, loss of partial foot or loss of leg. We discussed the risks and benefits in great detail. Other surgical risks include: prolonged pain and swelling, further infection requiring oral or IV antibiotics, delay in healing of soft tissue or bone, nerve or blood vessel damage, CRPS/RSD, DVT, anesthesia complications, and even . All questions answered. Patient verbalized understanding. Consent obtained. PCP-Dr Espinoza and cardiology Dr. Vuong/Faby Piedra EKG, stress test granted cardiac clearance. Operative findings:: Ulcer noted to the distal tip of the right second toe measuring approximately 0.2 times 0.2 x 0.2 cm. Wound base was 100% granular. Periwound cellulitis noted to the distal tip of the toe. Incision made over the dorsal interphalangeal joint, some serous fluid but no purulent drainage noted. The distal phalanx was soft and crumbly. Middle phalanx appeared to be intact with no evidence of cortical erosion. Operative note:: On this date and time patient was deemed an appropriate surgical candidate. With informed consent signed, the patient was taken to the operating theater. The patient was positioned supine. MAC anesthesia was induced. No tourniquet used. Pre-op right second toe block given with 10 cc 0.5% marcaine plain. 1g IV vanco given. Right foot incision and drainage: Right lower extremity was prepped and draped in normal sterile fashion. A dorsal linear incision was made over IPJ full thickness 0.5x0.1x0.3cm. There was some serous but no purulent drainage noted. Right 2nd digit (partial) amputation (with ulcer excision): Attention was then directed distally where a fish mouth incision was mapped out around the DIPJ. Utilizing a 15 blade dissection was carried down sharply to the level of the bone around the distal phalanx which was disarticulated from the medial phalanx. The distal toe ulcer was completed excised and sent as tissue ulcer pathology. The distal phalanx bone was soft and crumbly and had a no malodor to it. Portion of it was cut and sent for bone culture and the other part was sent for bone biopsy for pathology. Attention was then directed to the middle phalanx. The head was hard and intact, with no obvious discoloration or cortical erosions noted. Next gentamicin irrigation was used to flush the wound. The wound was reexplored and no further signs of infection noted. Bleeding controlled. No vessels ligated with electrocautery or tied as there was minimal to no blood loss. Prolene was used to close skin in an interrupted simple suture fashion. 10cc 0.5% marcaine plain given at end of case. The wounds were cleansed. Xeroform, dry sterile dressing was then applied to th
--- NOTE | 2021-09-27 08:15 | XR_ITS ---
FINAL REPORT CLINICAL HISTORY: post-op Right toe amp COMPARISON: August 03, 2021 FINDINGS: RIGHT FOOT: Three views of the right foot were obtained. There are interval postoperative changes from amputation of distal 2nd phalanx at the DIP joint. There are no bony erosions. There is no acute fracture or dislocation. There is mild degenerative change. There are calcaneal spurs. There are calcifications in the region of the distal Achilles tendon. IMPRESSION: Postoperative changes as described. Reviewed, Interpreted and Dictated by Eyal Mcdaniels III, MD Transcribed by Albert Larose Authenticated by Eyal Mcdaniels III, MD on 09/27/2021 09:45:37 AM [facility]
[2021-09-27 08:29] VITALS: BP 113/63; PULSE 56; RESP 18; O2SAT 97
[2021-09-27 08:35] VITALS: BP 127/71; PULSE 67; RESP 18; TEMP 36.2; O2SAT 94
[2021-09-27 08:44] VITALS: BP 106/67; PULSE 65; RESP 18; TEMP 36.2; O2SAT 97
[2021-09-27 08:45] VITALS: BP 120/72; PULSE 54; RESP 18; O2SAT 98
== END 2021-09-27 09:17 | disposition home or self-care (01) ==
LOC: OR 06:08
PROVIDERS: PCP Internal Medicine Adolescent Medicine; Visit Provider Podiatrist
DX: L97.516 Non-pressure chronic ulcer of other part of right foot with bone involvement without evidence of necrosis (principal); L03.031 Cellulitis of right toe; I25.10 Atherosclerotic heart disease of native coronary artery without angina pectoris; K21.9 Gastro-esophageal reflux disease without esophagitis; I25.2 Old myocardial infarction; E03.9 Hypothyroidism, unspecified; Z79.899 Other long term (current) drug therapy; I10 Essential (primary) hypertension
CPT/HCPCS: 28825; 73630; 87077; 87186; 88304; 88305; 88307; 88311; 96374; J3370

== ENCOUNTER → 2021-10-18 17:31 | Outpatient (CLI) | payer MEDICARE, SELFPAY | PROVIDERS: Visit Provider Nurse Practitioner Family | DX: Z98.890 Other specified postprocedural states (principal) | CPT/HCPCS: 87070; 87077; 87186; 87205 ==

== ENCOUNTER → 2021-11-27 09:09 | Outpatient (CLI) | payer MEDICARE, MEDICAID, SELFPAY ==
[2021-11-27 09:34] LABS: Basophils # 0.1 K/mm3 (0-0.2); Basophils % 1.3 % (0.1-2.0); Eosinophils # 0.2 K/mm3 (0.0-0.4); Eosinophils % 3.6 % (0.1-12.0); Hematocrit 44.5 % (42.0-52.0); Hemoglobin 14.6 g/dL (14.1-18.0); Lymphocytes # 1.4 K/mm3 (0.7-4.5); Lymphocytes % 30.7 % (10-50); Mean Corpuscular HGB Conc 32.9 g/dL (31.8-35.4); Mean Corpuscular Hemoglobin 30.5 pg (27.0-31.2); Mean Corpuscular Volume 92.8 fl (80-94); Monocytes # 0.3 K/mm3 (0.1-1.0); Monocytes % 7.5 % (1.7-9.3); Neutrophils # 2.6 K/mm3 (1.8-7.8); Neutrophils % 56.9 % (37.0-80.0); Platelet Count 244 K/mm3 (142-424); Red Blood Count 4.79 M/mm3 (4.60-6.20); Red Cell Distribution Width 13.6 % (11.5-17.5); White Blood Count 4.6 K/mm3 (4.8-10.8)
[2021-11-27 10:20] LABS: Alanine Aminotransferase 72 U/L (12-78); Albumin Level 4.1 g/dl (3.5-5.0); Alkaline Phosphatase 83 U/L (38-126); Anion Gap 11.1 mEq/L (5-15); Aspartate Amino Transferase 52 U/L (17-59); Bilirubin,Indirect 0.6 mg/dL (0.0-0.9); Bilirubin,Total 0.6 mg/dl (0.2-1.3); Bilirubin,Unconjugated 0.9 mg/dL (0.0-1.1); Blood Urea Nitrogen 19 mg/dl (9-20); Calcium 9.2 mg/dl (8.4-10.2); Carbon Dioxide 26 mmol/L (22.0-30.0); Chloride 107 mmol/L (98-107); Chol/HDL Ratio 1.9 (1-3.5); Cholesterol 98 mg/dl (140-200); Estimated Glomerular Filt Rate 98 ml/min (>60); GFR (African American) 118 ML/MIN (>60); Glucose 94 mg/dl (74-100); HDL Cholesterol 51 mg/dl (40-60); Magnesium 2.2 mg/dl (1.6-2.3); Potassium 4.1 mmoL/L (3.5-5.1); Sodium 140 mmol/L (136-145); Total Protein,Serum 6.7 g/dl (6.3-8.2); Triglycerides 60 mg/dl (30-150); VLDL Cholesterol 12 mg/dL (0-40)
[2021-11-27 10:35] LABS: Direct LDL Cholesterol < 30.00 mg/dL (100-129); Free T4 (Free Thyroxine) 0.87 ng/dl (0.78-2.19)
[2021-11-27 10:50] LABS: Thyroid Stimulating Hormone 2.56 uIU/mL (0.465-4.68)
== END ==
PROVIDERS: Visit Provider Nurse Practitioner
DX: E78.2 Mixed hyperlipidemia (principal); I10 Essential (primary) hypertension; I25.10 Atherosclerotic heart disease of native coronary artery without angina pectoris; I25.2 Old myocardial infarction; R94.31 Abnormal electrocardiogram [ECG] [EKG]
CPT/HCPCS: 36415; 80048; 80061; 80076; 83735; 84439; 84443; 85025

== ENCOUNTER 2022-11-26 16:56 | Emergency (ER) | payer MEDICARE, MEDICAID, SELFPAY ==
[2022-11-26 17:05] VITALS: BP 112/69; PULSE 76; RESP 22; TEMP 37.9; O2SAT 96; BMI 29.8
--- NOTE | 2022-11-26 17:09 | EXP.UTC ---
Discharge Plan Disposition Patient Disposition: Home, Self-Care Condition: Good Prescriptions Prescriptions: New benzonatate [benzonatate] 100 mg capsule 100 mg PO TIDP PRN (Reason: Cough) Qty: 30 0RF oseltamivir [Tamiflu] 75 mg capsule 75 mg PO BID Qty: 10 0RF No Action Jardiance 25 mg tablet 25 mg PO Label Comments: TAKE 1 TABLET BY MOUTH IN THE MORNING atorvastatin 80 mg tablet 80 mg PO ropinirole 2 mg tablet 2 mg PO BID Rx Instructions: administer 1-3 hours before bedtime ropinirole 0.5 mg tablet 0.5 mg PO DAILY tramadol 50 mg tablet 50 mg PO TID aspirin [Adult Low Dose Aspirin] 81 mg tablet,delayed release (DR/EC) 81 mg PO DAILY ciclopirox [Ciclodan] 8 % solution 1 applic TOPICAL HS 28 Days Qty: 6.6 2RF Rx Instructions: Apply to affected toenails daily. Use brandin board once a week to smooth down toenail. lisinopril 5 mg tablet 5 mg PO DAILY Qty: 90 3RF ticagrelor 90 mg tablet 90 mg PO BID Qty: 60 11RF Referrals Follow up/Referrals: Vasiliy Espinoza MD [Primary Care Provider] - See instructions Activity Restrictions/Add. Instructions Additional Instructions/Restrictions: Drink plenty of fluids. Take tylenol for pain or fever. Take the medications as directed. Follow up with your regular doctor. GO TO THE ER FOR ANY WORSENING SYMPTOMS Clinical Impressions Clinical Impression: Influenza A Instructions Patient Instructions: DI for Influenza -- Adult, Oseltamivir Discharge ED Provider: Abdi Mcknight [facility] General Stated complaint: congestion, cough Time Seen by Provider: 11/26/22 17:08 History of Present Illness Provider Complaint: He states that since yesterday he has had fever, chills, body aches, and malaise. Related Data Home Medications Medication Instructions Recorded Confirmed aspirin 81 mg tablet,delayed 81 mg PO DAILY HEART HEALTHY 08/28/21 09/26/22 release (Adult Low Dose Aspirin) ropinirole 0.5 mg tablet 0.5 mg PO DAILY . 08/28/21 09/26/22 ropinirole 2 mg tablet 2 mg PO BID . 08/28/21 09/26/22 tramadol 50 mg tablet 50 mg PO TID Pain 08/28/21 09/26/22 atorvastatin 80 mg tablet 80 mg PO 10/05/21 09/26/22 empagliflozin 25 mg tablet 25 mg PO 10/05/21 09/26/22 (Jardiance) Previous Rx's Medication Instructions Recorded ciclopirox 8 % topical solution 1 applic topical HS nail fungus 4 08/28/21 (Ciclodan) weeks #6.6 mL lisinopril 5 mg tablet 5 mg PO DAILY BP #90 tabs 09/19/21 ticagrelor 90 mg tablet 90 mg PO BID stents #60 tabs 10/19/22 benzonatate 100 mg capsule 100 mg PO TIDP PRN Cough #30 caps 11/26/22 oseltamivir 75 mg capsule (Tamiflu) 75 mg PO BID #10 caps 11/26/22 Allergies Allergy/AdvReac Type Severity Reaction Status Date / Time Penicillins Allergy Verified 11/26/22 17:32 NSAIDS (Non-Steroidal AdvReac Verified 11/26/22 17:32 Anti-Inflamma PFSH PFSH Disclaimer: The information contained in this section may have been updated after the patient was seen, as this information can be updated by other users. Medical History Abnormal cardiovascular stress test Abnormal EKG Atherosclerotic heart disease CAD (coronary artery disease) Encounter for pre-operative cardiovascular clearance GERD (gastroesophageal reflux disease) HLD (hyperlipidemia) HTN (hypertension) Hx of myocardial infarction MRSA (methicillin resistant staph aureus) culture positive Myocardial infarction T2DM (type 2 diabetes mellitus) Surgical History H/O arthroscopy of left knee Family History Other Asthma Heart attack Social History Smoking Status: Never smoker second hand exposure: Yes alcohol intake: never substance use type: denies use current occupational
[2022-11-26 17:19] VITALS: BMI 29.8
--- NOTE | 2022-11-26 17:19 | XR_ITS ---
PROCEDURE INFORMATION: Exam: XR Chest Exam date and time: 11/26/2022 5:17 PM Age: 62 years old Clinical indication: Cough and fever TECHNIQUE: Imaging protocol: Radiologic exam of the chest. Views: 2 views. COMPARISON: CR XR CHEST PORTABLE 08/26/2021 5:51 PM FINDINGS: Lungs: Unremarkable. No consolidation. Pleural spaces: Unremarkable. No pleural effusion. No pneumothorax. Heart/Mediastinum: Unremarkable. No cardiomegaly. Bones/joints: Unremarkable. IMPRESSION: No acute findings.
[2022-11-26 17:24] LABS: UTC Influenza A Antigen Positive (Negative)
[2022-11-26 17:25] LABS: UTC Influenza B Antigen Negative (Negative)
[2022-11-26 17:50] VITALS: BP 112/69; PULSE 76; RESP 22; TEMP 37.9; O2SAT 96
== END 2022-11-26 18:00 | disposition home or self-care (01) ==
PROVIDERS: Emergency Provider Nurse Practitioner Family; PCP Internal Medicine Adolescent Medicine
DX: J09.X2 Influenza due to identified novel influenza A virus with other respiratory manifestations (principal); R50.9 Fever, unspecified; R53.81 Other malaise; I10 Essential (primary) hypertension; E78.5 Hyperlipidemia, unspecified; K21.9 Gastro-esophageal reflux disease without esophagitis; E11.9 Type 2 diabetes mellitus without complications; Z79.84 Long term (current) use of oral hypoglycemic drugs
CPT/HCPCS: 71046; 87804; 99204; 99212; G0463

== ENCOUNTER → 2022-12-12 09:21 | Outpatient (CLI) | payer MEDICARE, MEDICAID, SELFPAY ==
[2022-12-12 11:07] LABS: Alanine Aminotransferase 48 U/L (12-78); Alkaline Phosphatase 93 U/L (38-126); Aspartate Amino Transferase 45 U/L (17-59); Bilirubin,Indirect 0.6 mg/dL (0.0-0.9); Bilirubin,Total 0.6 mg/dl (0.2-1.3); Bilirubin,Unconjugated 0.8 mg/dL (0.0-1.1); Chol/HDL Ratio 2.1 (1-3.5); Cholesterol 118 mg/dl (140-200); HDL Cholesterol 57 mg/dl (40-60); Total Protein,Serum 7.5 g/dl (6.3-8.2); Triglycerides 91 mg/dl (30-150); VLDL Cholesterol 18 mg/dL (0-40)
[2022-12-12 11:18] LABS: Direct LDL Cholesterol 42.33 mg/dL (100-129)
== END ==
PROVIDERS: PCP Internal Medicine Adolescent Medicine; Visit Provider Nurse Practitioner Family
DX: E78.2 Mixed hyperlipidemia (principal)
CPT/HCPCS: 36415; 80061; 80076

== ENCOUNTER → 2023-02-27 11:18 | Outpatient (CLI) | payer MEDICARE, SELFPAY ==
--- NOTE | 2023-02-27 11:28 | XR_ITS ---
FINAL REPORT CLINICAL HISTORY: left 2nd toe wound/blister FINDINGS: Left foot Three views were obtained. There is no acute fracture or dislocation. There are mild degenerative changes. Calcaneal spurs are identified. No soft tissue abnormality is identified. IMPRESSION: Mild degenerative changes. Reviewed, Interpreted and Dictated by Eyal Mcdaniels III, MD Transcribed by Emiliana Holman Authenticated and [facility]
[2023-02-27 12:03] LABS: Basophils % 0.4 % (0.1-2.0); Eosinophils # 0.2 K/mm3 (0.0-0.4); Eosinophils % 3.1 % (0.1-12.0); Hematocrit 48.2 % (42.0-52.0); Hemoglobin 15.6 g/dL (14.1-18.0); Lymphocytes # 1.4 K/mm3 (0.7-4.5); Lymphocytes % 26.8 % (10-50); Mean Corpuscular HGB Conc 32.4 g/dL (31.8-35.4); Mean Corpuscular Volume 92.6 fl (80-94); Mean Platelet Volume 7.8 fl (7.4-10.4); Monocytes # 0.4 K/mm3 (0.1-1.0); Monocytes % 7.4 % (1.7-9.3); Neutrophils # 3.4 K/mm3 (1.8-7.8); Neutrophils % 62.3 % (37.0-80.0); Platelet Count 198 K/mm3 (142-424); Red Blood Count 5.21 M/mm3 (4.60-6.20); Red Cell Distribution Width 13.3 % (11.5-17.5); White Blood Count 5.4 K/mm3 (4.8-10.8)
[2023-02-27 12:28] LABS: Alanine Aminotransferase 42 U/L (12-78); Albumin Level 4.5 g/dl (3.5-5.0); Albumin/Globulin Ratio 1.6 (1.1-1.8); Alkaline Phosphatase 76 U/L (38-126); Anion Gap 13.1 mEq/L (5-15); Aspartate Amino Transferase 36 U/L (17-59); Bilirubin,Total 0.7 mg/dl (0.2-1.3); Blood Urea Nitrogen 22 mg/dl (9-20); Calcium 9.1 mg/dl (8.4-10.2); Carbon Dioxide 25 mmol/L (22.0-30.0); Chloride 109 mmol/L (98-107); Estimated Glomerular Filt Rate 85 ml/min (>60); GFR (African American) 102 ML/MIN (>60); Globulin 2.9 g/dL (1.3-3.2); Glucose 116 mg/dl (74-100); Potassium 4.1 mmoL/L (3.5-5.1); Sodium 143 mmol/L (136-145); Total Protein,Serum 7.4 g/dl (6.3-8.2)
[2023-02-27 12:34] LABS: C-Reactive Protein 2.5 mg/L (0-4)
[2023-02-27 13:21] LABS: Erythrocyte Sedimentation Rate 17 mm/hr (0-20)
== END ==
PROVIDERS: PCP Internal Medicine Adolescent Medicine; Visit Provider Nurse Practitioner Family
DX: R07.89 Other chest pain; L02.612 Cutaneous abscess of left foot; M79.672 Pain in left foot; A49.8 Other bacterial infections of unspecified site; E11.621 Type 2 diabetes mellitus with foot ulcer
CPT/HCPCS: 36415; 73630; 80053; 85025; 85651; 86140; 87070; 87077; 87205

== ENCOUNTER → 2023-03-07 11:40 | Outpatient (CLI) | payer MEDICARE, SELFPAY ==
[2023-03-07 13:04] LABS: Iron 208 ug/dL (49-181)
[2023-03-07 13:14] LABS: Total Iron Binding Capacity 279 ug/dL (261-462)
[2023-03-07 13:37] LABS: Thyroid Stimulating Hormone 2.21 uIU/mL (0.465-4.68)
[2023-03-07 13:40] LABS: Ferritin 194 ng/ml (17.9-464)
[2023-03-07 16:51] LABS: Vitamin B12 803 pg/mL (239-931)
== END ==
PROVIDERS: PCP Internal Medicine Adolescent Medicine; Visit Provider Nurse Practitioner Family
DX: E83.10 Disorder of iron metabolism, unspecified (principal); G25.81 Restless legs syndrome; G89.29 Other chronic pain; M54.50 Low back pain, unspecified; R20.0 Anesthesia of skin; R20.2 Paresthesia of skin
CPT/HCPCS: 36415; 82607; 82728; 83540; 83550; 84443

== ENCOUNTER → 2023-05-17 09:19 | Outpatient (CLI) | payer MEDICARE, SELFPAY ==
[2023-05-17 10:44] LABS: Basophils % 0.4 % (0.1-2.0); Eosinophils # 0.2 K/mm3 (0.0-0.4); Eosinophils % 2.6 % (0.1-12.0); Hematocrit 50.5 % (42.0-52.0); Hemoglobin 17.4 g/dL (14.1-18.0); Lymphocytes # 1.2 K/mm3 (0.7-4.5); Lymphocytes % 19.3 % (10-50); Mean Corpuscular HGB Conc 34.4 g/dL (31.8-35.4); Mean Platelet Volume 7.7 fl (7.4-10.4); Monocytes # 0.4 K/mm3 (0.1-1.0); Monocytes % 6.3 % (1.7-9.3); Neutrophils # 4.6 K/mm3 (1.8-7.8); Neutrophils % 71.4 % (37.0-80.0); Platelet Count 224 K/mm3 (142-424); Red Blood Count 5.43 M/mm3 (4.60-6.20); Red Cell Distribution Width 13.4 % (11.5-17.5); White Blood Count 6.4 K/mm3 (4.8-10.8)
[2023-05-17 11:05] LABS: Alanine Aminotransferase 54 U/L (12-78); Albumin Level 4.7 g/dl (3.5-5.0); Albumin/Globulin Ratio 1.5 (1.1-1.8); Alkaline Phosphatase 76 U/L (38-126); Anion Gap 13.8 mEq/L (5-15); Aspartate Amino Transferase 50 U/L (17-59); Bilirubin,Total 0.9 mg/dl (0.2-1.3); Blood Urea Nitrogen 33 mg/dl (9-20); Calcium 9.5 mg/dl (8.4-10.2); Carbon Dioxide 28 mmol/L (22.0-30.0); Chloride 103 mmol/L (98-107); Estimated Glomerular Filt Rate 97 ml/min (>60); GFR (African American) 117 ML/MIN (>60); Globulin 3.2 g/dL (1.3-3.2); Glucose 98 mg/dl (74-100); Potassium 4.8 mmoL/L (3.5-5.1); Sodium 140 mmol/L (136-145); Total Protein,Serum 7.9 g/dl (6.3-8.2)
[2023-05-17 11:20] LABS: Iron 243 ug/dL (49-181)
[2023-05-17 11:29] LABS: Total Iron Binding Capacity 307 ug/dL (261-462)
[2023-05-17 11:56] LABS: Ferritin 197 ng/ml (17.9-464)
== END ==
LOC: LAB 09:20
PROVIDERS: PCP Internal Medicine Adolescent Medicine; Visit Provider Internal Medicine Medical Oncology
DX: D50.9 Iron deficiency anemia, unspecified (principal)
CPT/HCPCS: 36415; 80053; 81256; 82728; 83540; 83550; 85025

== ENCOUNTER 2023-06-19 07:53 | Outpatient (CLI) | payer MEDICARE, OTHER, SELFPAY ==
--- NOTE | 2023-06-19 07:54 | CA_ITS ---
APPROVED REPORT EXAM: Comprehensive 2D, Doppler, and color-flow Echocardiogram Demi Chef: Zoya Conley CRT Ht: 6 ft 0 in Wt: 234lbs BSA: 2.28 BP: 140/78 mmHg Indications: Chest Pain, Diabetes, Hyperlipidemia, Hypertension/HDD, Pre-Op, stents, old PA, MRSA 2D Dimensions Left Atrium 3.86 cm LA Volume 42.50 mL LVOT 1.89 cm (M/F) 1.5-2.5 LA Volume Index 18.60 mL/m2 (M/F) 16-34 EF AP4 53.50 % GL Strain -15.1 % M-Mode Dimensions RVDd 3.11 cm (0.9-2.6) LVDd 4.25 cm (3.5-5.7) Ao Diam 4.02 cm (2.0-3.7) LVDs 2.85 cm (3.5-5.7) IVSd 1.64 cm (0.6-1.1) PWd 0.73 cm (0.6-1.1) EF (Teich) 61.80% FS 32.90% EDV (Teich) 80.80 mL TAPSE 1.83 (<1.7) ESV (Teich) 30.90 mL LV Diastology MED E' 7.8 (>= 7 cm/sec) MED A' 11.80 cm/s LAT E' 8.3 (>= 10 cm/sec) LAT A' 11.60 cm/s Aortic Valve AoV Peak Yariel. 90.0 (50-130 cm/s) AO Peak GR. 3.30 mmHg Tricuspid Valve TR P. Velocity 208.00 cm/s RAP Estimate 10.00 mmHg RVSP 27.30 mmHg Left Ventricle The left ventricle is normal size. The left ventricular systolic function is normal. The left ventricular ejection fraction is within the normal range. There is normal left ventricular wall thickness. There is normal LV segmental wall motion. The left ventricular diastolic function is normal. LVEF is 60%. Right Ventricle The right ventricle is normal size. The right ventricular systolic function is normal. Atria The left atrium size is normal. The right atrium size is normal. Aortic Valve The aortic valve is normal in structure. The aortic valve is trileaflet. There is no aortic valvular stenosis. No aortic regurgitation is present. Mitral Valve The mitral valve is normal in structure. No evidence of mitral valve stenosis. Trace mitral regurgitation. Tricuspid Valve The tricuspid valve leaflets are thin and pliable. Trace tricuspid regurgitation. RVSP is normal. Pulmonic Valve The pulmonary valve is normal in structure. Trace pulmonic regurgitation Trace pulmonic regurgitation. Great Vessels The aortic root is normal in size. The ascending aorta is normal in size. IVC is normal in size and collapses >50% with inspiration. Pericardium There is no pericardial effusion. Other Information Study Quality: Adequate Conclusion Normal biventricular systolic function. No significant valvular stenosis or regurgitation. Electronically signed by : Salud Dewey MD 06/22/2023 21:25:38
--- NOTE | 2023-06-19 09:30 | PC.NURSE ---
0940-collected labs via venipuncture stick in left ac with butterfly needle; will wait on labs for possible therapeutic phlebotomy for hct >45 to remove 500ml.
[2023-06-19 09:35] VITALS: BMI 31.6
[2023-06-19 09:50] LABS: Hemoglobin 16.2 g/dL (14.1-18.0)
[2023-06-19 10:12] VITALS: BP 127/83; PULSE 59; RESP 18; O2SAT 99
--- NOTE | 2023-06-19 11:00 | PC.NURSE ---
1100-pt states he feels a little dizzy after phlebotomy; gave pt drink and a sandwich will reevaluate pt in a few mins. pt states he did not eat prior to arriving.
--- NOTE | 2023-06-19 11:20 | PC.NURSE ---
1120-pt states he feels much better now since he has eaten. pt ready to be d/c home
[2023-06-19 11:25] VITALS: BP 151/83; PULSE 59; RESP 18; O2SAT 99
== END 2023-06-19 11:25 | disposition home or self-care (01) ==
LOC: RT 07:54
PROVIDERS: Internal Medicine Medical Oncology; PCP Internal Medicine Adolescent Medicine; Visit Provider Physician Assistant
DX: E78.5 Hyperlipidemia, unspecified (principal); I10 Essential (primary) hypertension; I25.10 Atherosclerotic heart disease of native coronary artery without angina pectoris; R07.9 Chest pain, unspecified; R94.31 Abnormal electrocardiogram [ECG] [EKG]
CPT/HCPCS: 36415; 85014; 85018; 93306; 99195

== ENCOUNTER 2023-06-25 08:40 | Outpatient (CLI) | payer MEDICARE, OTHER, SELFPAY ==
[2023-06-25 08:45] VITALS: BMI 31.6
--- NOTE | 2023-06-25 08:56 | PC.NURSE ---
06/25/23 0850 Pt presents for weekly labs and possible phlebotomy. Venipuncture performed to pt's lt outer fa using butterfly needle, blood drawn for labs. Needle withdrawn and site secured with 2x2 gauze and coban. Will await results of labs to determine if phlebotomy is needed.
[2023-06-25 09:05] LABS: Hematocrit 40.5 % (42.0-52.0); Hemoglobin 13.9 g/dL (14.1-18.0)
[2023-06-25 09:10] VITALS: BP 135/58; PULSE 67; RESP 18; TEMP 36.4; O2SAT 100
== END 2023-06-25 09:10 | disposition home or self-care (01) ==
LOC: INF 08:42
PROVIDERS: PCP Internal Medicine Adolescent Medicine; Visit Provider Internal Medicine Medical Oncology
DX: E83.110 Hereditary hemochromatosis (principal)
CPT/HCPCS: 36415; 85014; 85018

== ENCOUNTER 2023-07-02 08:04 | Outpatient (CLI) | payer MEDICARE, OTHER, SELFPAY ==
[2023-07-02 08:11] VITALS: BMI 31.3
--- NOTE | 2023-07-02 08:11 | PC.NURSE ---
0811-collected labs via venipuncture stick with butterfly needle; pt to wait for lab results.
[2023-07-02 08:18] LABS: Hematocrit 43.6 % (42.0-52.0); Hemoglobin 14.8 g/dL (14.1-18.0)
--- NOTE | 2023-07-02 08:30 | PC.NURSE ---
0830-pt to d/c home and return in 2 weeks;pt hct 43.8; therapeutic phlebotomy only needed if hct >45
== END 2023-07-02 08:30 | disposition home or self-care (01) ==
LOC: INF 08:04
PROVIDERS: PCP Internal Medicine Adolescent Medicine; Visit Provider Internal Medicine Medical Oncology
DX: Z45.2 Encounter for adjustment and management of vascular access device (principal); R79.1 Abnormal coagulation profile
CPT/HCPCS: 36415; 85014; 85018

== ENCOUNTER 2023-07-22 08:15 | Outpatient (CLI) | payer MEDICARE, OTHER, SELFPAY ==
[2023-07-22 08:22] VITALS: BMI 31.6
--- NOTE | 2023-07-22 08:33 | PC.NURSE ---
07/22/2023 0830 Pt presents for lab check and possible phlebotomy. Venipuncture performed using butterfly access needle x 1 stick to pt's lt ac. Blood obtained for labs and specimen sent to lab for analysis. Site secured with 2x2 gauze and coban once needle was withdrawn. Will await results to determine poc.
[2023-07-22 08:39] LABS: Hematocrit 42.5 % (42.0-52.0); Hemoglobin 14.4 g/dL (14.1-18.0)
== END 2023-07-22 08:51 | disposition home or self-care (01) ==
LOC: INF 08:17
PROVIDERS: PCP Internal Medicine Adolescent Medicine; Visit Provider Internal Medicine Medical Oncology
DX: R79.1 Abnormal coagulation profile (principal)
CPT/HCPCS: 36415; 85014; 85018

== ENCOUNTER 2023-08-19 08:11 | Outpatient (CLI) | payer MEDICARE, OTHER, SELFPAY ==
[2023-08-19 08:15] VITALS: BMI 31.6
[2023-08-19 08:28] LABS: Basophils % 0.6 % (0.1-2.0); Eosinophils # 0.3 K/mm3 (0.0-0.4); Eosinophils % 5.1 % (0.1-12.0); Hematocrit 45.5 % (42.0-52.0); Hemoglobin 15.7 g/dL (14.1-18.0); Lymphocytes # 1.6 K/mm3 (0.7-4.5); Lymphocytes % 28.1 % (10-50); Mean Corpuscular HGB Conc 34.6 g/dL (31.8-35.4); Mean Corpuscular Hemoglobin 31.7 pg (27.0-31.2); Mean Corpuscular Volume 91.7 fl (80-94); Monocytes # 0.4 K/mm3 (0.1-1.0); Monocytes % 6.6 % (1.7-9.3); Neutrophils # 3.4 K/mm3 (1.8-7.8); Neutrophils % 59.6 % (37.0-80.0); Platelet Count 193 K/mm3 (142-424); Red Blood Count 4.97 M/mm3 (4.60-6.20); Red Cell Distribution Width 12.7 % (11.5-17.5); White Blood Count 5.7 K/mm3 (4.8-10.8)
[2023-08-19 10:05] VITALS: BP 127/67; BP 131/66; PULSE 48; PULSE 59; RESP 18; O2SAT 98
== END 2023-08-19 10:10 | disposition home or self-care (01) ==
LOC: INF 08:12
PROVIDERS: PCP Internal Medicine Adolescent Medicine; Visit Provider Internal Medicine Medical Oncology
DX: E83.110 Hereditary hemochromatosis (principal)
CPT/HCPCS: 36415; 85025; 99195

== ENCOUNTER 2023-09-11 10:01 | Outpatient (CLI) | payer MEDICARE, OTHER, SELFPAY ==
[2023-09-11 10:28] LABS: Basophils % 0.4 % (0.1-2.0); Eosinophils # 0.2 K/mm3 (0.0-0.4); Hemoglobin 15.3 g/dL (14.1-18.0); Lymphocytes # 1.3 K/mm3 (0.7-4.5); Lymphocytes % 25.6 % (10-50); Mean Corpuscular HGB Conc 32.6 g/dL (31.8-35.4); Mean Corpuscular Hemoglobin 31.6 pg (27.0-31.2); Mean Corpuscular Volume 97.1 fl (80-94); Mean Platelet Volume 7.9 fl (7.4-10.4); Monocytes # 0.4 K/mm3 (0.1-1.0); Monocytes % 7.9 % (1.7-9.3); Neutrophils # 3.2 K/mm3 (1.8-7.8); Neutrophils % 62.1 % (37.0-80.0); Platelet Count 206 K/mm3 (142-424); Red Blood Count 4.85 M/mm3 (4.60-6.20); White Blood Count 5.1 K/mm3 (4.8-10.8)
[2023-09-11 11:01] LABS: Chloride 108 mmol/L (98-107); Sodium 140 mmol/L (136-145)
[2023-09-11 11:02] LABS: Potassium 4.2 mmoL/L (3.5-5.1)
[2023-09-11 11:04] LABS: Alanine Aminotransferase 45 U/L (12-78); Alkaline Phosphatase 76 U/L (38-126); Anion Gap 7.2 mEq/L (5-15); Aspartate Amino Transferase 40 U/L (17-59); Bilirubin,Total 0.6 mg/dl (0.2-1.3); Blood Urea Nitrogen 18 mg/dl (9-20); Carbon Dioxide 29 mmol/L (22.0-30.0); Estimated Glomerular Filt Rate 85 ml/min (>60); GFR (African American) 102 ML/MIN (>60)
[2023-09-11 11:05] LABS: Albumin Level 4.3 g/dl (3.5-5.0); Albumin/Globulin Ratio 1.6 (1.1-1.8); Globulin 2.7 g/dL (1.3-3.2); Glucose 100 mg/dl (74-100)
[2023-09-11 11:41] LABS: Ferritin 63.9 ng/ml (17.9-464)
== END 2023-09-11 23:59 ==
PROVIDERS: PCP Internal Medicine Adolescent Medicine; Visit Provider Internal Medicine Medical Oncology
DX: E83.111 Hemochromatosis due to repeated red blood cell transfusions (principal); Z79.899 Other long term (current) drug therapy
CPT/HCPCS: 36415; 80053; 82728; 85025

== ENCOUNTER 2023-09-16 06:45 | Outpatient (CLI) | payer MEDICARE, OTHER, SELFPAY ==
[2023-09-16 06:45] VITALS: BP 127/66; PULSE 67; RESP 16; TEMP 36.1; O2SAT 98
--- NOTE | 2023-09-16 08:30 | PC.NURSE ---
0820 #20 gauge inserted into Lt AC, x2 sticks. Prephlebotomy vitals: BP-124/61, T-96.6, Resp-16, Sat- 97%. 0829 Yaquelin from lab here to do phlebotomy. Post phlebotomy vitals: BP- 127/66, Temp-97.0, Pulse-67, Resp.-16 and Sat 98%. Pt denies issues post phlebotomy. Pt home per self.
== END 2023-09-16 23:59 ==
PROVIDERS: PCP Internal Medicine Adolescent Medicine; Visit Provider Internal Medicine Medical Oncology
DX: E83.110 Hereditary hemochromatosis (principal)
CPT/HCPCS: 99195

== ENCOUNTER 2023-11-18 08:22 | Outpatient (CLI) | payer MEDICARE, OTHER, SELFPAY ==
--- NOTE | 2023-11-18 08:27 | XR_ITS ---
FINAL REPORT CLINICAL HISTORY: Callus of foot FINDINGS: RIGHT FOOT 3 views of the right foot were obtained. The second distal phalanx is presumably surgically absent. There are mild and moderate degenerative changes, worst at the first MTP and first IP joints. There is calcaneal spurring. Calcification is seen in the region of the distal Achilles tendon. There is no acute fracture or dislocation. Visualized joint spaces are normally aligned. Soft tissues are unremarkable. IMPRESSION: No acute bony abnormality. Reviewed, Interpreted and Dictated by Eyal Mcdaniels III, MD Transcribed by Avril Miller Authenticated and [facility]
== END 2023-11-18 23:59 | disposition home or self-care (01) ==
LOC: RAD 08:23
PROVIDERS: PCP Internal Medicine Adolescent Medicine; Visit Provider Nurse Practitioner
DX: L84 Corns and callosities (principal); M79.671 Pain in right foot
CPT/HCPCS: 73630

== ENCOUNTER 2024-01-21 08:39 | Outpatient (CLI) | payer MEDICARE, OTHER, SELFPAY ==
--- NOTE | 2024-01-21 08:45 | US_ITS ---
FINAL REPORT CLINICAL HISTORY: Decreased Pedal Pulses, DM, CAD, HLD, HTN, hx CO. (Previous DOLLY 08/2021 RT DOLLY=1.33, LT DOLLY=1.20) FINDINGS: Ankle brachial indices was obtained. The right DOLLY is 1.2. The left DOLLY is 1.1. IMPRESSION: ABIs are within normal limits bilaterally. Reviewed, Interpreted and Dictated by Eyal Mcdaniels III, MD Transcribed by Emiliana Holman Authenticated and [facility]
--- NOTE | 2024-01-21 09:12 | CT_ITS ---
FINAL REPORT TECHNIQUE: Thin section axial CT images with coronal and sagittal reformats were performed. This study was performed with techniques to keep radiation doses as low as reasonably achievable (ALARA). Individualized dose reduction techniques using automated exposure control or adjustment of mA and/or kV according to the patient's size were employed. CLINICAL HISTORY: Right Foot Pain COMPARISON: None. FINDINGS: There is no evidence of fracture. There are mild and moderate degenerative changes. Calcaneal spurs are noted. There are calcifications of the distal Achilles tendon with distal Achilles tendinitis. IMPRESSION: Achilles tendon calcifications and tendinitis. Degenerative changes. Reviewed, Interpreted and Dictated by Eyal Mcdaniels III, MD Transcribed by Cori Barbour Authenticated and [facility]
[2024-01-21] MEDS: IOPAMIDOL-370 (76%);100ML BOTTLE 75 ML IV (10:17)
[2024-01-21] MEDS: SODIUM CHLORIDE 0.9% 10ML SYR (RAD ONLY) 10 ML IV (10:17)
== END 2024-01-21 23:59 | disposition home or self-care (01) ==
LOC: RT 08:41
PROVIDERS: PCP Internal Medicine Adolescent Medicine; Visit Provider Podiatrist
DX: R09.89 Other specified symptoms and signs involving the circulatory and respiratory systems (principal); M79.674 Pain in right toe(s); M79.89 Other specified soft tissue disorders; L03.031 Cellulitis of right toe
CPT/HCPCS: 73701; 93923; Q9967

== ENCOUNTER 2024-03-23 08:32 | Outpatient (CLI) | payer MEDICARE, OTHER, SELFPAY ==
[2024-03-23 08:41] VITALS: BMI 31.4
[2024-03-23 09:09] LABS: Basophils # 0.1 K/mm3 (0-0.2); Basophils % 1.4 % (0.1-2.0); Eosinophils # 0.3 K/mm3 (0.0-0.4); Eosinophils % 6.8 % (0.1-12.0); Hemoglobin 15.7 g/dL (14.1-18.0); Lymphocytes # 1.4 K/mm3 (0.7-4.5); Lymphocytes % 32.1 % (10-50); Mean Corpuscular HGB Conc 31.4 g/dL (31.8-35.4); Mean Corpuscular Hemoglobin 30.7 pg (27.0-31.2); Mean Corpuscular Volume 97.8 fl (80-94); Mean Platelet Volume 8.2 fl (7.4-10.4); Monocytes # 0.3 K/mm3 (0.1-1.0); Monocytes % 7.5 % (1.7-9.3); Neutrophils # 2.3 K/mm3 (1.8-7.8); Neutrophils % 52.2 % (37.0-80.0); Platelet Count 226 K/mm3 (142-424); Red Blood Count 5.11 M/mm3 (4.60-6.20); Red Cell Distribution Width 13.5 % (11.5-17.5); White Blood Count 4.3 K/mm3 (4.8-10.8)
[2024-03-23 09:33] LABS: Alanine Aminotransferase 50 U/L (12-78); Albumin Level 4.1 g/dl (3.5-5.0); Albumin/Globulin Ratio 1.2 (1.1-1.8); Alkaline Phosphatase 64 U/L (38-126); Anion Gap 7.7 mEq/L (5-15); Aspartate Amino Transferase 43 U/L (17-59); Bilirubin,Total 0.6 mg/dl (0.2-1.3); Blood Urea Nitrogen 25 mg/dl (9-20); Calcium 8.8 mg/dl (8.4-10.2); Carbon Dioxide 27 mmol/L (22.0-30.0); Chloride 108 mmol/L (98-107); Creatinine Clearance Estimated 108 mL/min (50-200); Estimated Glomerular Filt Rate 97 ml/min (>60); GFR (African American) 117 ML/MIN (>60); Globulin 3.4 g/dL (1.3-3.2); Glucose 94 mg/dl (74-100); Potassium 3.7 mmoL/L (3.5-5.1); Sodium 139 mmol/L (136-145); Total Protein,Serum 7.5 g/dl (6.3-8.2)
[2024-03-23 09:35] VITALS: BP 119/68; PULSE 44; RESP 18; TEMP 36.7; O2SAT 96
[2024-03-23 09:39] LABS: C-Reactive Protein 0.5 mg/L (0-4)
[2024-03-23 09:45] LABS: Hemoglobin A1C 5.7 % (4.0-6.0)
[2024-03-23 10:50] VITALS: BP 118/72; PULSE 49; RESP 18; TEMP 36.7; O2SAT 95
--- NOTE | 2024-03-23 11:14 | PC.NURSE ---
500ml therapeutic phlebotomy accounts for recorded 500ml blood loss
[2024-03-23 12:54] LABS: Erythrocyte Sedimentation Rate 21 mm/hr (0-20)
== END 2024-03-23 23:59 | disposition home or self-care (01) ==
LOC: INF 08:35
PROVIDERS: Podiatrist; PCP Internal Medicine Adolescent Medicine; Visit Provider Internal Medicine Medical Oncology
DX: R60.9 Edema, unspecified; E11.9 Type 2 diabetes mellitus without complications
CPT/HCPCS: 36415; 80053; 83036; 85025; 85651; 86140; 99195

== ENCOUNTER 2024-04-08 07:28 | Day surgery (SDC) | payer MEDICARE, OTHER, SELFPAY ==
[2024-04-06 16:47] VITALS: BMI 31.1
[2024-04-08] VITALS (7 sets, daily range): BP systolic 82–124; BP diastolic 42–64; PULSE 47–59; RESP 16–18; TEMP 36.1–36.2; O2SAT 94–97
[2024-04-08 07:57] LABS: POC Glucose,Bedside 97 (70-110)
[2024-04-08] MEDS: LACTATED RINGERS 1000ML 1,000 ML 25 ML IV (08:33)
[2024-04-08] MEDS: VANCOMYCIN/WATER FOR INJ (PEG) 1.5 GM/300 ML PIGGYBACK IV (08:45)
[2024-04-08] MEDS: MEROPENEM 1 GM in 0.9 % SODIUM CHLORIDE 100 ML IV (08:45)
--- NOTE | 2024-04-08 08:45 | XR_ITS ---
FINAL REPORT CLINICAL HISTORY: s/p 3rd toe partial amp COMPARISON: 11/18/2023 FINDINGS: RIGHT FOOT 3 views of the right foot were obtained. There is no acute fracture or dislocation. Patient is status post amputation of the second and third digits at the level of the DIP joints. There are mild degenerative changes of the first digit. Visualized joint spaces are normally aligned. Soft tissues are unremarkable. IMPRESSION: No acute bony abnormality. Reviewed, Interpreted and Dictated by Wilmar Nichols MD Transcribed by Avril Miller Authenticated and [facility]
[2024-04-08] MEDS: GENTAMICIN 80 MG/2 ML VIAL (09:12)
[2024-04-08] MEDS: BUPIVACAINE 0.5% 30ML VIAL 150 MG (09:12)
--- NOTE | 2024-04-08 09:18 | P.PNANES_ITS ---
[facility] Disclaimer: The information contained in this section may have been updated after the patient was seen, as this information can be updated by other users. 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 Abscess of second toe, left Myocardial infarction GERD (gastroesophageal reflux disease) T2DM (type 2 diabetes mellitus) Atherosclerotic heart disease MRSA (methicillin resistant staph aureus) culture positive Abnormal cardiovascular stress test Encounter for pre-operative cardiovascular clearance Abnormal EKG HLD (hyperlipidemia) HTN (hypertension) Hx of myocardial infarction CAD (coronary artery disease) Surgical History H/O heart artery stent H/O cardiac catheterization H/O arthroscopy of left knee Family History Other Asthma Heart attack Social History Smoking Status: Never smoker second hand exposure: Yes alcohol intake: never substance use type: denies use current occupational status: employed and retired Travel in the last 8 weeks: None household members: spouse and family housing: house caffeine: Yes [facility] Anesthesia Checklist Patient Identification Patient Identification: Arm Band Structural Data Admitted From: Home Planned Operative Procedure/s: Right 3rd Toe Partial Amputation Consent for Planned Operative Procedure(s) Verified: Yes Verified Documents: Surgical Consent and History and Physical NPO Status Verified Time NPO: 00:00 Additional verifications Anesthesia Reactions: No Hx Blood Transfusions: No Blood Transfusion Reaction: No Airway Assessment Mallampati Score:: Class II C-Spine Mobility Assessed: Yes TMJ Mobility Assessed: Yes Dentition: Good Dentition Neurological Assessment Level of Consciousness: Awake, Alert and Appropriate Anesthesia Plan Anesthesia Risk discussed: Yes Anesthesia Plan: Verified ASA Class: III Anesthesia Type: MAC
--- NOTE | 2024-04-08 09:31 | P.OP_ITS ---
Date of procedure: 04/08/24 Pre-op Diagnosis:: Right 3rd toe cellulitis Right 3rd toe ulcer Post-op Diagnosis:: Same Procedure performed:: Right 2nd toe (partial) amputation (with ulcer excision) Right foot incision and drainage Surgeon:: Anali Armendariz DPM Anesthesia: GETA Estimated blood loss (mL): 10 Clinical Note:: Patient is a 64-year-old diabetic male who presents with a right third diabetic foot ulcer. He had similar issue in 2021 with recurrent callus/ulceration and pain. He underwent a right second partial toe amputation 09/27/2021 with a good result. Patient requesting same surgery to the third toe. New images: xrays, CT and ABIs were discussed with the patient. We discussed conservative versus surgical treatment options. Discussed that the CT does not show obvious osteomyelitis however due to the recurrent callus/ulcer history there is always the chance. We discussed doing a bone biopsy. Patient is done dealing with this toe and wants it gone just like the other one . We discussed conservative care including continued oral vs IV antibiotics and local wound care versus surgical incision and drainage, ulcer excision and partial toe amputation Patient understands that they could have wound healing complications including delayed healing and infection. We discussed that if the wound does not heal, it is possible that they may need further debridement. Patient understands if infection spreads into the bone, it may warrant proximal amputation and could re sult in further loss of digits, loss of partial foot or loss of leg. Discussed toe length and possibility of change in pressure points and change in foot shape post-op. We discussed the risks and benefits in great detail. Other surgical risks include: prolonged pain and swelling, further infection requiring oral or IV antibiotics, delay in healing of soft tissue or bone, nerve or blood vessel damage, CRPS/RSD, DVT/PE, anesthesia complications, and even . All questions answered. Patient verbalized understanding. Written consent obtained. Operative findings:: Ulcer with km wound callus noted to the distal tip of the right third toe measuring approximately 0.2 x 0.2 x 0.2 cm. Wound base was 100% granular. Minimal periwound cellulitis noted to the distal tip of the toe. Incision made over the dorsal interphalangeal joint, no purulent drainage noted. The distal phalanx was soft and crumbly. Middle phalanx appeared to be intact with no evidence of cortical erosion. Operative note:: On this date and time patient was deemed an appropriate surgical candidate. With informed consent signed, the patient was taken to the operating theater. The patient was positioned supine. MAC anesthesia was induced. No tourniquet used. Pre-op right third toe block given with 10 cc 0.5% marcaine plain. 1g IV vanco, Cefepime given. Right foot incision and drainage: Right lower extremity was prepped and draped in normal sterile fashion. A dorsal linear incision was made over IPJ full thickness 0.5x0.1x0.3cm. There was some serous but no purulent drainage noted. Right 3rd digit (partial) amputation (with ulcer excision): Attention was then directed distally where a fish mouth incision was mapped out around the DIPJ. Utilizing a 15 blade dissection was carried down sharply to the level of the bone around the distal phalanx which was disarticulated from the medial phalanx. The distal toe ulcer was completed excised and sent as tissue ulcer pathology. The distal phalanx bone was soft and crumbly and had no malodor to it. Portion of it was cut and sent for bone culture and the other part was sent for bone biopsy for pathology. Attention was then directed to the middle phalanx. The head was hard and intact, with no obvious discoloration or cortical erosions noted. Next gentamicin irrigation was used to flush the wound. The wound was reexplored and no further signs of infection noted. Bleeding controlled. No vessels ligated with electrocautery or tied as there was minimal to no blood loss. Nylon was used to close skin in an interrupted simple suture fashion. 10cc 0.5% marcaine plain given at end of case. The wounds were cleansed. Xeroform, betaine soaked gauze, dry sterile dressing was then applied to the foot. The patient was awoken from anesthesia and transferred to recovery with vital signs stable and neurovascular status intact. He appeared to tolerate procedure and anesthesia well without complication. Patient is to maintain dressing clean dry and intact. Partial weight bearing to the right lower extremity in fracture boot with walker. Plan for oral abx post op: Levo x7d. Obtain post op films, right foot, 3 views. Follow up in one week for dressing change. Condition: stable Disposition: same day Specimens:: Right 3rd distal toe bone culture Right 3rd distal toe bone path Right 3rd toe ulcer path Complications:: None
--- NOTE | 2024-04-08 09:45 | SUR.PHASEII ---
portable xray at bedside
== END 2024-04-08 10:52 | disposition home or self-care (01) ==
PROVIDERS: PCP Internal Medicine Adolescent Medicine; Visit Provider Podiatrist
PROC: (CPT 28825; principal; 2024-04-08 09:00)
DX: E11.621 Type 2 diabetes mellitus with foot ulcer (principal); L97.511 Non-pressure chronic ulcer of other part of right foot limited to breakdown of skin; L03.031 Cellulitis of right toe; I25.10 Atherosclerotic heart disease of native coronary artery without angina pectoris; I10 Essential (primary) hypertension; E78.5 Hyperlipidemia, unspecified; Z79.899 Other long term (current) drug therapy
CPT/HCPCS: 28825; 73630; 82962; 88304; 88305; 88311; 96374; C9144; J1580; J2185; J7120

== ENCOUNTER 2024-06-22 08:30 | Outpatient (CLI) | payer MEDICARE, OTHER, SELFPAY ==
[2024-06-22 08:37] VITALS: BMI 38.3
--- NOTE | 2024-06-22 08:55 | PC.NURSE ---
0822 Patient here for labs/ possible therapeutic phlebotomy. Labs obtained via venipuncture to L AC x1 stick with butterfly needle. Awaiting lab results to determine if patient will receive therapeutic phlebotomy.
[2024-06-22 08:58] LABS: Basophils % 0.7 % (0.1-2.0); Eosinophils # 0.2 K/mm3 (0.0-0.4); Eosinophils % 4.4 % (0.1-12.0); Hematocrit 46.4 % (42.0-52.0); Hemoglobin 15.5 g/dL (14.1-18.0); Lymphocytes # 1.3 K/mm3 (0.7-4.5); Lymphocytes % 26.8 % (10-50); Mean Corpuscular HGB Conc 33.4 g/dL (31.8-35.4); Mean Corpuscular Hemoglobin 30.3 pg (27.0-31.2); Mean Corpuscular Volume 90.8 fl (80-94); Mean Platelet Volume 7.7 fl (7.4-10.4); Monocytes # 0.4 K/mm3 (0.1-1.0); Monocytes % 7.9 % (1.7-9.3); Neutrophils # 2.9 K/mm3 (1.8-7.8); Neutrophils % 60.2 % (37.0-80.0); Platelet Count 193 K/mm3 (142-424); Red Blood Count 5.11 M/mm3 (4.60-6.20); Red Cell Distribution Width 13.2 % (11.5-17.5); White Blood Count 4.8 K/mm3 (4.8-10.8)
[2024-06-22 09:05] LABS: Albumin Level 4.2 g/dl (3.5-5.0); Chloride 112 mmol/L (98-107); Sodium 141 mmol/L (136-145)
[2024-06-22 09:08] LABS: Alanine Aminotransferase 49 U/L (12-78); Albumin/Globulin Ratio 1.5 (1.1-1.8); Alkaline Phosphatase 60 U/L (38-126); Aspartate Amino Transferase 49 U/L (17-59); Bilirubin,Total 0.5 mg/dl (0.2-1.3); Blood Urea Nitrogen 24 mg/dl (9-20); Carbon Dioxide 23 mmol/L (22.0-30.0); Creatinine Clearance Estimated 132 mL/min (50-200); Estimated Glomerular Filt Rate 84 ml/min (>60); GFR (African American) 102 ML/MIN (>60); Globulin 2.8 g/dL (1.3-3.2)
[2024-06-22 09:09] LABS: Glucose 99 mg/dl (74-100)
[2024-06-22 09:32] VITALS: BP 147/67; PULSE 57; RESP 16; TEMP 36.7; O2SAT 96
[2024-06-22 10:05] VITALS: BP 116/66; PULSE 59; RESP 16; O2SAT 97
[2024-06-22 10:15] VITALS: BP 141/73; PULSE 64; RESP 18; TEMP 36.7; O2SAT 97
--- NOTE | 2024-06-22 11:14 | PC.NURSE ---
500ml therapeutic phlebotomy/ patient tolerated well
== END 2024-06-22 10:15 | disposition home or self-care (01) ==
LOC: INF 08:33
PROVIDERS: PCP Internal Medicine Adolescent Medicine; Visit Provider Internal Medicine Medical Oncology
DX: E83.110 Hereditary hemochromatosis (principal)
CPT/HCPCS: 36415; 80053; 82728; 85025; 99195

== ENCOUNTER 2024-08-23 16:18 | Emergency (ER) | payer MEDICARE, OTHER, SELFPAY ==
[2024-08-23 16:19] VITALS: BP 150/80; PULSE 74; RESP 16; TEMP 36.9; O2SAT 98; BMI 27.1
--- NOTE | 2024-08-23 16:21 | ED_ITS ---
<Statement entered by Ketty Whaley DO - 08/23/24 22:17> I was consulted by the ILA, and we discussed the complexity of the problems being addressed. I approved the treatment and management plan for this patient's care in the emergency department, thus performing a substantive portion of the medical decision making. Ketty Whaley DO Discharge Plan Disposition Patient Disposition: Home, Self-Care Condition: Good Chief Complaint: Chest Pain Prescriptions Prescriptions: No Action Jardiance 25 mg tablet 25 mg PO DAILY Patient Comments: TAKE 1 TABLET BY MOUTH IN THE MORNING atorvastatin 80 mg tablet 80 mg PO DAILY levofloxacin 500 mg tablet 500 mg PO Q24H 7 Days Qty: 7 0RF Rx Instructions: Start day after surgery (04/09/24) aspirin [Adult Low Dose Aspirin] 81 mg tablet,delayed release (DR/EC) 81 mg PO DAILY tramadol 50 mg tablet 50 mg PO BID ropinirole 2 mg tablet 2 mg PO TID Rx Instructions: administer 1-3 hours before bedtime trazodone 100 mg tablet 100 mg PO HS PRN (Reason: Sleep) Patient Comments: TAKE 1 TABLET BY MOUTH ONCE DAILY DIRECTED BEFORE BEDTIME (DME) Accu-Chek Guide test strips Strip See Rx Instructions .ROUTE .MEDSUPPLY Qty: 10 Patient Comments: USE 1 STRIP ONCE DAILY TO TEST BLOOD SUGAR Rx Instructions: As directed doxycycline hyclate 100 mg capsule 100 mg PO BID 7 Days Qty: 14 0RF mupirocin 2 % ointment 1 applic topical BID 21 Days Qty: 22 1RF Rx Instructions: Apply to affected area up to twice daily Brilinta 60 mg tablet See Rx Instructions .ROUTE .COMPLEX Qty: 180 3RF Dose Instruction: Take 1 tablet by mouth twice daily Rx Instructions: Take 1 tablet by mouth twice daily Referrals Follow up/Referrals: Vasiliy Espinoza MD [Primary Care Provider] - See instructions Activity Restrictions/Add. Instructions Additional Instructions/Restrictions: Please follow-up with your PCP for any new ongoing or worsening signs or symptoms or return to the ER as needed. Continue taking Tylenol Motrin alternating every 4 hours for symptomatic treatment. Clinical Impressions Clinical Impression: Acute lower respiratory tract infection, Chest pain Print Language Print Language: Latvian Discharge ED Provider: Ketty Whaley HPI <JANEY Chung - Last Filed: 08/23/24 18:15> General Chief Complaint: Chest Pain Stated Complaint: Chest Pain Time Seen by Provider: 08/23/24 16:21 History of Present Illness HPI narrative: Patient presents for evaluation of chest pain. Patient states he has began having low substernal/epigastric chest pain that began around 11 AM this morning. It has been continuous and it feels like an ache. Patient reports that he has been short of breath on exertion and feels winded when walking. He denies any fever chills hemoptysis hematochezia melena nausea vomiting diarrhea. Related Data Home Medications ?Medication ?Instructions ?Recorded ?Confirmed aspirin 81 mg tablet,delayed 81 mg PO DAILY HEART HEALTHY 08/28/21 08/13/24 release (Adult Low Dose Aspirin) atorvastatin 80 mg tablet 80 mg PO DAILY Cholesterol 10/05/21 08/13/24 empagliflozin 25 mg tablet 25 mg PO DAILY Diabetes 10/05/21 08/13/24 (Jardiance) tramadol 50 mg tablet 50 mg PO BID Pain 03/06/23 08/13/24 blood sugar diagnostic (Accu-Chek #10 ea 05/17/23 08/13/24 Guide test strips) ropinirole 2 mg tablet 2 mg PO TID . 01/06/24 08/13/24 trazodone 100 mg tablet 100 mg PO HS PRN Sleep 01/06/24 08/13/24 Previous Rx's ?Medication ?Instructions ?Recorded levofloxacin 500 mg tablet 500 mg PO Q24H infection 7 days #7 03/31/24 tabs ticagrelor 60 mg tablet (Brilinta) See Rx Instructions .Route 06/08/24 .COMPLEX #180 tabs doxycycline hyclate 100 mg capsule 100 mg PO BID 7 days #14 caps 08/13/24 mupirocin 2 % topical ointment 1 applic topical BID cellulitis 3 08/13/24 weeks #22 grams Allergies Allergy/AdvReac Type Severity Reaction Status Date / Time NSAIDS (Non-Steroidal AdvReac Other Verified 08/13/24 08:19 Anti-Inflamma [facility] <JANEY Chung - Last Filed: 08/23/24 18:15> [facility] Disclaimer: The information contained in this section may have been updated after the patient was seen, as this information can be updated by other users. 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 Abscess of second toe, left Myocardial infarction GERD (gastroesophageal reflux disease) T2DM (type 2 diabetes mellitus) Atherosclerotic heart disease MRSA (methicillin resistant staph aureus) culture positive Abnormal cardiovascular stress test Encounter for pre-operative cardiovascular clearance Abnormal EKG HLD (hyperlipidemia) HTN (hypertension) Hx of myocardial infarction CAD (coronary artery disease) Surgical History H/O heart artery stent H/O cardiac catheterization H/O arthroscopy of left knee Family History Other Asthma Heart attack Social History Smoking Status: Never smoker second hand exposure: Yes alcohol intake: never substance use type: denies use current occupational status: employed and retired Travel in the last 8 weeks: None household members: spouse and family housing: house caffeine: Yes Have you lived/traveled outside US in past 30 days?: No Contact w/someone who lives/traveled outside US past 30 days?: No Exposure to someone with infectious disease in past 14 days?: No Do you have a fever (greater than 100.4 F or 38 C)?: No Have you tested positive for COVID-19: No Exposed to someone with COVID-19 in past 14 days?: No Do you have a sore throat?: No Do you have a cough?: No Do you have any weakness?: No Do you have any diarrhea?: No Are you experiencing any unusual bleeding?: No Do you have any muscle aches/pain?: No Do you have any abdominal pain?: No Are you experiencing loss of taste or smell?: No Other Medical History Have you received the Flu Vaccine for this season: Yes Have you received the Pneumonia Vaccine: Yes <JANEY Chung - Last Filed: 08/23/24 18:15> ROS Obtained: Yes Systems reviewed as appropriate & no additional complaints except as documented Physical Exam <JANEY Chung - Last Filed: 08/23/24 18:15> General General appearance: alert and in no apparent distress Respiratory Respiratory exam: Present normal lung sounds bilaterally Cardiovascular Cardiovascular exam: Present regular rate Neurological Exam Neurological exam: Present alert and oriented X3 HEART Score <JANEY Chung - Last Filed: 08/23/24 18:15> HEART Score HEART Score assessment performed?: Yes History (anamnesis): Slightly suspicious ECG: Non-specific disturbance Age: >65 years Risk factors: Atherosclerosis history Troponin: </= normal limit HEART Score: 5 Critical Care <JANEY Chung - Last Filed: 08/23/24 18:15> Critical Care Time Critical Care Time: No Medical Decision Making <JANEY Chung - Last Filed: 08/23/24 18:15> Medical Records Medical records reviewed: Yes I reviewed the patient's medical records. David Inquiry Pt receiving controlled substance: No Vital Signs Vital Signs: 08/23/24 16:19 08/23/24 16:30 08/23/24 17:00 Temperature 98.4 F Temperature Source Oral Pulse Rate 68 65 Pulse Rate [Right] 74 Respiratory Rate 16 17 12 Blood Pressure 144/88 H 146/96 H Blood Pressure [Right Arm] 150/80 H Blood Pressure Mean [Right Arm] 103 Blood Pressure Source [Right Arm] Automatic Cuff 02 Sat by Pulse Oximetry 98 97 98 Oxygen Delivery Method Room Air Room Air Room Air 08/23/24 17:30 08/23/24 18:00 Temperature Temperature Source Pulse Rate 70 63 Pulse Rate [Right] Respiratory Rate 23 17 Blood Pressure 147/81 H 147/89 H Blood Pressure [Right Arm] Blood Pressure Mean [Right Arm] Blood Pressure Source [Right Arm] 02 Sat by Pulse Oximetry 96 96 Oxygen Delivery Method Room Air Room Air Lab Data Lab results reviewed: Yes I reviewed the patient's lab results. Labs: Lab Results 08/23/24 16:20: SARS-CoV-2 (PCR) Not detected, Influenza Type A (PCR) Not detected, Influenza Type B (PCR) Not detected, RSV (PCR) Not detected, Rhinovirus (PCR) Detected 08/23/24 16:23: WBC 10.0, RBC 5.19, Hgb 15.6, Hct 45.6, MCV 87.9, MCH 30.1, MCHC 34.2, RDW 12.5, Plt Count 238, MPV 9.6, Neut % (Auto) 74.5, Lymph % (Auto) 13.4, Mccormick % (Auto) 8.9, Eos % (Auto) 2.6, Baso % (Auto) 0.4, Neut # (Auto) 7.4, Lymph # (Auto) 1.3, Mccormick # (Auto) 0.9, Eos # (Auto) 0.3, Baso # (Auto) 0.0, PT 10.5, INR 0.94, D-Dimer 0.54 H, VBG pH 7.32, VBG pCO2 47.8, VBG pO2 48.7 H, VBG HCO3 24.2, VBG Total CO2 25.7, VBG O2 Saturation 82.7 H, VBG Base Excess -2.3, VBG Lactic Acid 1.4, Sodium 141, Potassium 4.3, Chloride 106, Carbon Dioxide 27, Anion Gap 12.3, BUN 26 H, Creatinine 0.90, Estimated Creat Clear 93, Estimated GFR 84, Est GFR ( Amer) 102, Glucose 102 H, Calcium 9.4, Magnesium 2.1, Total Bilirubin 0.6, AST 38, ALT 39, Alkaline Phosphatase 68, Troponin I < 0.01, NT-Pro-B Natriuret Pep 56.3, Total Protein 8.0, Albumin 4.8, Globulin 3.2, Albumin/Globulin Ratio 1.5, Lipase 95, Procalcitonin 0.055, HCV Ab DANNIELLE w/Rflx PCR Qn Negative, HIV Ag/Ab Combo Qual Negative 08/23/24 16:23 08/23/24 16:23 Response Orders (Tests/Meds): ED MEDICATIONS Discontinued Medications Generic Name Dose Route Start Last Admin Trade Name Freq PRN Reason Stop Dose Admin Acetaminophen 1,000 mg 08/23/24 16:21 08/23/24 16:59 Acetaminophen 500mg Tab PO 08/23/24 16:22 1,000 mg ONCE ONE Administration Belladonna Alkaloids 60 ml 08/23/24 16:48 08/23/24 16:59 Belladonna Alkaloids 60 Ml Ml PO 08/23/24 16:49 60 ml ONCE ONE Administration ORDERS Category Date Time Status Chest XR 2 view (NOT portable) [XR chest 2V] Stat Exams 08/23/24 16:21 Completed BNP [NT Pro Brain Natriuretic Pep.] Stat Lab 08/23/24 16:23 Completed CBC w/Auto Diff [Complete Blood Count Auto Diff] Stat Lab 08/23/24 16:23 Completed CMP [Comprehensive Metabolic Panel] Stat Lab 08/23/24 16:23 Completed D-Dimer Stat Lab 08/23/24 16:23 Completed HIV Combo Stat Lab 08/23/24 16:23 Completed Hepatitis C Ab Qual. W/ RFX Stat Lab 08/23/24 16:23 Completed INR [Prothrombin Time INR] Stat Lab 08/23/24 16:23 Completed Lipase Stat Lab 08/23/24 16:23 Completed Magnesium Stat Lab 08/23/24 16:23 Completed Mini Respiratory Panel Stat Lab 08/23/24 16:20 Completed Procalcitonin Stat Lab 08/23/24 16:23 Completed Trop I [Troponin I] Stat Lab 08/23/24 16:23 Completed Troponin I Q3H Lab 08/23/24 19:30 Ordered Troponin I Q3H Lab 08/23/24 22:30 Ordered VBG [Venous Blood Gas] Stat RT 08/23/24 16:23 Completed MDM Narrative Medical Decision Narrative: In summary patient is a 64-year-old male who presents to the emergency department for evaluation of chest pain. Patient is hemodynamically stable with a blood pressure 150/80 pulse 74 with apparent normal sinus rhythm on the bedside monitor breathing 16 times a minute satting at 98% on room air upon arrival, febrile at 98.4. Physical exam is remarkable for clear breath sounds without adventitious sounds and no increased work of breathing, heart sounds are normal, there is no epigastric tenderness to palpation abdomen soft nontender no rebound or guarding no rigidity normal bowel sounds. Differential diagnosis includes ACS versus esophagitis/gastritis versus lower respiratory tract infection etc. Initial workup will be conducted with twelve-lead EKG plain film chest x-ray hematologic labs respiratory swab. Initial interventions include Tylenol Toradol GI cocktail. Initial workup reviewed by me and his hematologic labs are nonactionable my informal interpretation of his plain film chest x-ray shows no acute process prior to radiology read initial troponin is negative and his mini respiratory panel is positive for rhinovirus. Upon repeat evaluation patient remains normotensive with no increased respiratory requirement no increased oxygen requirement and feels initially better after initial intervention. Given this patient is appropriate for discharge and close follow- up with his PCP for any ongoing new or worsening signs or symptoms as needed. <Ketty Whaley, DO - Last Filed: 08/23/24 16:59> Vital Signs Vital Signs: 08/23/24 16:19 08/23/24 16:30 08/23/24 17:00 Temperature 98.4 F Temperature Source Oral Pulse Rate 68 65 Pulse Rate [Right] 74 Respiratory Rate 16 17 12 Blood Pressure 144/88 H 146/96 H Blood Pressure [Right Arm] 150/80 H Blood Pressure Mean [Right Arm] 103 Blood Pressure Source [Right Arm] Automatic Cuff 02 Sat by Pulse Oximetry 98 97 98 Oxygen Delivery Method Room Air Room Air Room Air 08/23/24 17:30 08/23/24 18:00 Temperature Temperature Source Pulse Rate 70 63 Pulse Rate [Right] Respiratory Rate 23 17 Blood Pressure 147/81 H 147/89 H Blood Pressure [Right Arm] Blood Pressure Mean [Right Arm] Blood Pressure Source [Right Arm] 02 Sat by Pulse Oximetry 96 96 Oxygen Delivery Method Room Air Room Air Lab Data Labs: Lab Results 08/23/24 16:20: SARS-CoV-2 (PCR) Not detected, Influenza Type A (PCR) Not detected, Influenza Type B (PCR) Not detected, RSV (PCR) Not detected, Rhinovirus (PCR) Detected 08/23/24 16:23: WBC 10.0, RBC 5.19, Hgb 15.6, Hct 45.6, MCV 87.9, MCH 30.1, MCHC 34.2, RDW 12.5, Plt Count 238, MPV 9.6, Neut % (Auto) 74.5, Lymph % (Auto) 13.4, Mccormick % (Auto) 8.9, Eos % (Auto) 2.6, Baso % (Auto) 0.4, Neut # (Auto) 7.4, Lymph # (Auto) 1.3, Mccormick # (Auto) 0.9, Eos # (Auto) 0.3, Baso # (Auto) 0.0, PT 10.5, INR 0.94, D-Dimer 0.54 H, VBG pH 7.32, VBG pCO2 47.8, VBG pO2 48.7 H, VBG HCO3 24.2, VBG Total CO2 25.7, VBG O2 Saturation 82.7 H, VBG Base Excess -2.3, VBG Lactic Acid 1.4, Sodium 141, Potassium 4.3, Chloride 106, Carbon Dioxide 27, Anion Gap 12.3, BUN 26 H, Creatinine 0.90, Estimated Creat Clear 93, Estimated GFR 84, Est GFR ( Amer) 102, Glucose 102 H, Calcium 9.4, Magnesium 2.1, Total Bilirubin 0.6, AST 38, ALT 39, Alkaline Phosphatase 68, Troponin I < 0.01, NT-Pro-B Natriuret Pep 56.3, Total Protein 8.0, Albumin 4.8, Globulin 3.2, Albumin/Globulin Ratio 1.5, Lipase 95, Procalcitonin 0.055, HCV Ab DANNIELLE w/Rflx PCR Qn Negative, HIV Ag/Ab Combo Qual Negative Response Orders (Tests/Meds): ED MEDICATIONS Discontinued Medications Generic Name Dose Route Start Last Admin Trade Name Freq PRN Reason Stop Dose Admin Acetaminophen 1,000 mg 08/23/24 16:21 08/23/24 16:59 Acetaminophen 500mg Tab PO 08/23/24 16:22 1,000 mg ONCE ONE Administration Belladonna Alkaloids 60 ml 08/23/24 16:48 08/23/24 16:59 Belladonna Alkaloids 60 Ml Ml PO 08/23/24 16:49 60 ml ONCE ONE Administration ORDERS Category Date Time Status Chest XR 2 view (NOT portable) [XR chest 2V] Stat Exams 08/23/24 16:21 Completed BNP [NT Pro Brain Natriuretic Pep.] Stat Lab 08/23/24 16:23 Completed CBC w/Auto Diff [Complete Blood Count Auto Diff] Stat Lab 08/23/24 16:23 Completed CMP [Comprehensive Metabolic Panel] Stat Lab 08/23/24 16:23 Completed D-Dimer Stat Lab 08/23/24 16:23 Completed HIV Combo Stat Lab 08/23/24 16:23 Completed Hepatitis C Ab Qual. W/ RFX Stat Lab 08/23/24 16:23 Completed INR [Prothrombin Time INR] Stat Lab 08/23/24 16:23 Completed Lipase Stat Lab 08/23/24 16:23 Completed Magnesium Stat Lab 08/23/24 16:23 Completed Mini Respiratory Panel Stat Lab 08/23/24 16:20 Completed Procalcitonin Stat Lab 08/23/24 16:23 Completed Trop I [Troponin I] Stat Lab 08/23/24 16:23 Completed Troponin I Q3H Lab 08/23/24 19:30 Ordered Troponin I Q3H Lab 08/23/24 22:30 Ordered VBG [Venous Blood Gas] Stat RT 08/23/24 16:23 Completed ECG Data Tracing #1: Attestation: I reviewed this ECG and interpreted as documented below: ECG Narrative: Normal sinus rhythm with a ventricular rate of [address]/T wave changes in leads III and aVF with Q waves noted. Discussed with Dr. Vuong, no acute STEMI. Normal intervals ECG initial impression date: 08/23/24 ECG initial impression time: 16:18
--- NOTE | 2024-08-23 16:21 | XR_ITS ---
PROCEDURE INFORMATION: Exam: XR Chest Exam date and time: 08/23/2024 4:43 PM Age: 64 years old Clinical indication: Cough and other: Cp; Additional info: Chest pain TECHNIQUE: Imaging protocol: Radiologic exam of the chest. Views: 2 views. COMPARISON: CR XR CHEST 2V 11/26/2022 5:17 PM FINDINGS: Lungs: Normal pulmonary expansion. Pulmonary vasculature grossly normal. No gross pulmonary infiltrates or edema pattern. Pleural spaces: No pleural effusion. No pneumothorax. Heart/Mediastinum: Heart size normal. No tracheal/mediastinal shift. Bones/joints: No acute osseous abnormalities are identified. Moderate thoracic spondylosis. IMPRESSION: No acute thoracic process.
[2024-08-23 16:26] LABS: Coronavirus 19, PCR Not Detected (NotDetected); Influenza A, PCR Not Detected (NotDetected); Influenza B, PCR Not Detected (NotDetected); Respiratory Syncytial Virus Not Detected (NotDetected)
[2024-08-23 16:30] VITALS: BP 144/88; PULSE 68; RESP 17; O2SAT 97
--- NOTE | 2024-08-23 16:30 | ECG_ITS ---
APPROVED REPORT Exam: Resting ECG HR:70 bpm ECG Measurements Heart Rate 70 AXES VT 175 P 0 QRSd 110 QRS 64 QT 393 T 46 QTc 414 Conclusion SINUS RHYTHM No STEMI Electronically signed by : PAULO ROPER, 08/23/2024 23:13:19
[2024-08-23 16:31] LABS: Basophils % 0.4 % (0.1-2.0); Eosinophils # 0.3 K/mm3 (0.0-0.4); Eosinophils % 2.6 % (0.1-12.0); Hematocrit 45.6 % (42.0-52.0); Hemoglobin 15.6 g/dL (14.1-18.0); Lymphocytes # 1.3 K/mm3 (0.7-4.5); Lymphocytes % 13.4 % (10-50); Mean Corpuscular HGB Conc 34.2 g/dL (31.8-35.4); Mean Corpuscular Hemoglobin 30.1 pg (27.0-31.2); Mean Corpuscular Volume 87.9 fl (80-94); Mean Platelet Volume 9.6 fl (7.4-10.4); Monocytes # 0.9 K/mm3 (0.1-1.0); Monocytes % 8.9 % (1.7-9.3); Neutrophils # 7.4 K/mm3 (1.8-7.8); Neutrophils % 74.5 % (37.0-80.0); Platelet Count 238 K/mm3 (142-424); Red Blood Count 5.19 M/mm3 (4.60-6.20); Red Cell Distribution Width 12.5 % (11.5-17.5)
[2024-08-23 16:35] LABS: Chloride 106 mmol/L (98-107); Potassium 4.3 mmoL/L (3.5-5.1); Sodium 141 mmol/L (136-145)
[2024-08-23 16:37] LABS: Blood Urea Nitrogen 26 mg/dl (9-20); Creatinine Clearance Estimated 93 mL/min (50-200); Estimated Glomerular Filt Rate 84 ml/min (>60); GFR (African American) 102 ML/MIN (>60)
[2024-08-23 16:38] LABS: Alanine Aminotransferase 39 U/L (12-78); Alkaline Phosphatase 68 U/L (38-126); Anion Gap 12.3 mEq/L (5-15); Aspartate Amino Transferase 38 U/L (17-59); Bilirubin,Total 0.6 mg/dl (0.2-1.3); Calcium 9.4 mg/dl (8.4-10.2); Carbon Dioxide 27 mmol/L (22.0-30.0); Glucose 102 mg/dl (74-100); INR 0.94 (0.9-1.1); Lipase 95 U/L (23-300); Magnesium 2.1 mg/dl (1.6-2.3); Prothrombin Time 10.5 seconds (9.2-12.1)
[2024-08-23 16:47] LABS: NT Pro Brain Natriuretic Pep. 56.3 pg/mL (0-125)
[2024-08-23 16:54] LABS: D-Dimer 0.54 ug/mL (0.0-0.5); Troponin I < 0.01 ng/ml (0.00-0.034)
[2024-08-23 16:55] LABS: Albumin Level 4.8 g/dl (3.5-5.0); Albumin/Globulin Ratio 1.5 (1.1-1.8); Globulin 3.2 g/dL (1.3-3.2)
[2024-08-23 16:57] LABS: VBG PH 7.32 mmol/L (7.31-7.41)
[2024-08-23 16:58] LABS: Lactate Venous 1.4 mmol/L (0.4-2.0); VBG Base Excess -2.3 mmol/L (-2.4-2.3); VBG HCO3 24.2 mmol/L (23-30); VBG Oxygen Saturation 82.7 % (50-70); VBG PCO2 47.8 mmol/L (35-51); VBG PO2 48.7 mmol/L (28-40); VBG Total CO2 25.7 mmol/L (23-27)
[2024-08-23] MEDS: ACETAMINOPHEN 500MG TAB 1000 MG PO (16:59)
[2024-08-23] MEDS: BELLADONNA ALKALOIDS 60 ML ML PO (16:59)
[2024-08-23 17:00] VITALS: BP 146/96; PULSE 65; RESP 12; O2SAT 98
[2024-08-23 17:10] LABS: Procalcitonin 0.055 ng/mL (0.0-2.0)
[2024-08-23 17:30] VITALS: BP 147/81; PULSE 70; RESP 23; O2SAT 96
[2024-08-23 17:51] LABS: Hepatitis C Ab Qual. W/ RFX NEGATIVE (Negative)
[2024-08-23 17:52] LABS: HIV Combo NEGATIVE (Negative)
[2024-08-23 17:57] LABS: Human Rhinovirus Detected (NotDetected)
[2024-08-23 18:00] VITALS: BP 147/89; PULSE 63; RESP 17; O2SAT 96
--- NOTE | 2024-08-23 18:02 | PC.NURSE ---
ROUNDED ON THE PT. THE PT VOICES THAT HE DOES NOT NEED ANYTHING AT THIS TIME. CALL LIGHT IS WITHIN REACH OF THE PT. FAMILY MEMBER IS PRESENT AT THE BEDSIDE.
[2024-08-23 18:55] LABS: Troponin I < 0.01 ng/ml (0.00-0.034)
[2024-08-23 19:20] VITALS: BP 126/76; PULSE 71; RESP 17; TEMP 36.9; O2SAT 98
== END 2024-08-23 19:20 | disposition home or self-care (01) ==
PROVIDERS: Physician Assistant; Emergency Provider Emergency Medicine; PCP Internal Medicine Adolescent Medicine
DX: J22 Unspecified acute lower respiratory infection (principal); R07.9 Chest pain, unspecified; R06.09 Other forms of dyspnea
CPT/HCPCS: 71046; 80053; 82803; 83690; 83735; 83880; 84145; 84484; 85025; 85378; 85610; 86803; 87389; 87631; 93005; 99284

== ENCOUNTER 2024-09-21 08:11 | Outpatient (CLI) | payer MEDICARE, OTHER, SELFPAY ==
--- NOTE | 2024-09-21 08:15 | PC.NURSE ---
0815-collected labs via venipuncture stick in left ac; pt to wait on results if hct >45 pt to have to have therapeutic phlebotomy
[2024-09-21 08:16] VITALS: BMI 31.6
[2024-09-21 08:55] LABS: Basophils % 0.7 % (0.1-2.0); Eosinophils # 0.3 K/mm3 (0.0-0.4); Eosinophils % 4.9 % (0.1-12.0); Lymphocytes # 1.8 K/mm3 (0.7-4.5); Lymphocytes % 30.9 % (10-50); Mean Corpuscular HGB Conc 33.3 g/dL (31.8-35.4); Mean Corpuscular Hemoglobin 29.6 pg (27.0-31.2); Mean Corpuscular Volume 88.8 fl (80-94); Mean Platelet Volume 9.9 fl (7.4-10.4); Monocytes # 0.7 K/mm3 (0.1-1.0); Monocytes % 12.6 % (1.7-9.3); Neutrophils # 2.9 K/mm3 (1.8-7.8); Neutrophils % 50.7 % (37.0-80.0); Platelet Count 202 K/mm3 (142-424); Red Blood Count 5.07 M/mm3 (4.60-6.20); Red Cell Distribution Width 12.6 % (11.5-17.5); White Blood Count 5.7 K/mm3 (4.8-10.8)
== END 2024-09-21 09:10 | disposition home or self-care (01) ==
LOC: INF 08:13
PROVIDERS: PCP Internal Medicine Adolescent Medicine; Visit Provider Internal Medicine Medical Oncology
DX: E83.110 Hereditary hemochromatosis (principal)
CPT/HCPCS: 36415; 85025

== ENCOUNTER 2024-10-06 10:56 | Outpatient (CLI) | payer MEDICARE, OTHER, SELFPAY ==
[2024-10-06 13:22] LABS: Ferritin 23.1 ng/ml (17.9-464)
== END 2024-10-06 23:59 | disposition home or self-care (01) ==
LOC: LAB 10:57
PROVIDERS: PCP Internal Medicine Adolescent Medicine; Visit Provider Internal Medicine Medical Oncology
DX: E83.110 Hereditary hemochromatosis (principal)
CPT/HCPCS: 36415; 82728

== ENCOUNTER 2024-12-29 10:01 | Outpatient (CLI) | payer MEDICARE, OTHER, SELFPAY ==
--- OUTSIDE RECORDS SUMMARY | 2024-08-15 17:30 | XMS_ITS ---
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 Name Role Phone MAURICE ALVAREZ Unavailable [phone] Ty Anand MD Unavailable Unavailable Migration, Provider Unavailable Unavailable [facility] Conversion Encounter Medications Medication SIG (Take, Route, Frequency, Duration) Notes Start Date End Date Status Flonase Allergy Relief 50 MCG/ACT 2 spray(s) intranasally once a day for 30 Active ZyrTEC Allergy 10 MG 1 tab(s) orally onc e a day for 30 Active predniSONE 10 MG 2 Tabs orally once a day for 7 days 04/24/2017 Active Encounters Encounter Location Date Provider Diagnosis [facility] [address] [facility] [address] [place] [phone] 08/15/2024 Provider Migration Mixed conductive and sensorineural [...] 50 MCG/ACT 2 spray(s) intranasally once a day for 30 ZyrTEC Allergy 10 MG 1 tab(s) orally onc e a day for 30 predniSONE 10 MG 2 Tabs orally once a day for 7 days 04/24/2017 Progress Notes * JIGNESH FITZGERALDOB:1960 (64 yo M)Acc No.[id number]:08/15/2024 Patient: ARIN LAIRD Provider: Abner Simons :1960 A ge:64 Y S ex:Male Date:08/15/2024 Address:[address] [place], [place] [id number] Subjective: * Chief Complaints: * 1 . [facility] To [facility] Conversion Encounter. * Medical History: Objective: * [...] spray(s), intranasally, once a day, 30, 1 Victoria, Refills 2. * Billing Information: * Visit Code: * Procedure Codes: * Electronic signature of Prov ider Migration on 12/29/2024 at 10:04 AM EDT Sign off status: Pending * Provider: Abner pereyra Migration Date: 0 08/15/2024 Generated for Ady bautista/Wm/Gold on: 0 12/29/2024 10:04 AM EDT
--- OUTSIDE RECORDS SUMMARY | 2024-12-29 10:04 | XMS_ITS | Patient Health Record ---
Author Organization [facility] Address [address] [place] [address] Care Team Providers Care Wire Frame Maker Name Role Phone MAURICE ALVAREZ Unavailable [phone] Ty Anand MD Unavailable Unavailable Migration, Provider Unavailable Unavailable Reason For Referral No Information Medications Medication SIG (Take, Route, Frequency, Duration) Notes Start Date End Date Status Flonase Allergy Relief 50 MCG/ACT 2 spray(s) intranasally once a day for 30 Active ZyrTEC Allergy 10 MG 1 tab(s) orally onc e a day for 30 Active predniSONE 10 MG 2 Tabs orally once a day for 7 days 04/24/2017 Active Social History Tobacco Use: Social History Observation Description Date Details (start date - stop date) Never Smoker NA - NA Smoking status: Question Answer Notes Are you a: nonsmoker Problems Problem Type SNOMED Code ICD Code Onset Dates Problem Status W/U Status Risk Notes Problem Acute non-suppurative otitis media - serous (062254396) Acute serous otitis media, left ear (H65.02) Active confirmed Problem Mixed conductive and sensorineural hearing loss, unilateral with unrestricted hearing on the contralateral side (146344853) Mixed conductive and sensorineural hearing loss, unilateral, left ear, with unrestricted hearing on the contralateral side (H90.72) Active confirmed Problem Sensorineural hearing loss (23093209) SNHL (sensory-neural hearing loss), unilateral (H90.5) Active confirmed Problem Dysfunction of both eustachian tubes (3018551563422656 ) Dysfunction of both eustachian tubes (H69.83) Active confirmed Problem Dizziness (768842259) Dizziness (R42) Active confirmed Problem Bilateral tinnitus (6875687097294) Tinnitus of both ears (H93.13) Active confirmed Problem Unilateral mixed conductive and sensorineural hearing loss with unrestricted hearing on the contralateral side (314323546) Mixed conductive and sensorineural hearing loss, unilateral, right ear with restricted hearing on the contralateral side (H90.A31) Active confirmed Encounters Encounter Location Date Provider Diagnosis [facility] [address] [place] [address] 08/15/2024 Provider Migration Mixed conductive and sensorineural hearing loss, unilateral, 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 Assessments Encounter Date Diagnosis (ICD Code) Assessment Notes Treatment Notes Treatment Clinical Notes Section Notes 08/15/2024 Mixed conductive and sensorineural hearing loss, unilateral, right ear with restricted hearing on the contralateral side (ICD-10 - H90.A31) Plan Of Treatment No Information Insurance Providers Payer Name Payer Address Payer Phone Subscriber Number Group Number Insured Name Patient Relationship to Insured Coverage Start Date Coverage End Date [facility] [employer] [facility] [address] [place] [address] [id number] ARIN FITZGERALD Self - patient is the insured Medical (General) History Medical History History ICD Code HEARING LOSS BOTH RINGING IN EARS LEFT DIFFICULTY HEARING IN NOISY ENVIRONMENTS BALANCE PROBLEMS INABILITY TO SMELL SEASONAL ALLERGIES Surgical History Surgery Date(Month/Year) NASAL SURGERY 2000 KNEE 2017
[2024-12-29 11:07] LABS: Basophils % 0.6 % (0.1-2.0); Eosinophils # 0.1 Kmm3 (0.0-0.4); Eosinophils % 2.6 % (0.1-12.0); Hematocrit 45.7 % (42.0-52.0); Hemoglobin 15.2 g/dL (14.1-18.0); Immature Granulocytes # 0.01 10^3uL; Immature Granulocytes % 0.2 %; Lymphocytes # 1.2 K/mm3 (0.7-4.5); Lymphocytes % 22.5 % (10-50); Mean Corpuscular HGB Conc 33.3 g/dL (31.8-35.4); Mean Corpuscular Hemoglobin 29.6 pg (27.0-31.2); Mean Corpuscular Volume 89.1 fl (80-94); Mean Platelet Volume 9.8 fl (7.4-10.4); Monocytes # 0.5 K/mm3 (0.1-1.0); Monocytes % 9.4 % (1.7-9.3); Neutrophils # 3.5 K/mm3 (1.8-7.8); Neutrophils % 64.7 % (37.0-80.0); Nucleated Red Blood Cells # 0 10^3/uL; Nucleated Red Blood Cells % 0 %; Platelet Count 231 K/mm3 (142-424); Red Blood Count 5.13 M/mm3 (4.60-6.20); Red Cell Distribution Width 13.2 % (11.5-17.5); Red Cell Distribution Width-SD 42.8 fL; White Blood Count 5.3 K/mm3 (4.8-10.8)
[2024-12-29 11:39] LABS: Alanine Aminotransferase 40 U/L (12-78); Albumin Level 4.3 g/dl (3.5-5.0); Albumin/Globulin Ratio 1.5 (1.1-1.8); Alkaline Phosphatase 70 U/L (38-126); Anion Gap 7.3 mEq/L (5-15); Aspartate Amino Transferase 37 U/L (17-59); Bilirubin,Total 0.9 mg/dl (0.2-1.3); Blood Urea Nitrogen 19 mg/dl (9-20); Calcium 9.8 mg/dl (8.4-10.2); Carbon Dioxide 25 mmol/L (22.0-30.0); Chloride 109 mmol/L (98-107); Estimated Glomerular Filt Rate 84 ml/min (>60); GFR (African American) 102 ML/MIN (>60); Globulin 2.9 g/dL (1.3-3.2); Glucose 105 mg/dl (74-100); Potassium 4.3 mmoL/L (3.5-5.1); Sodium 137 mmol/L (136-145); Total Protein,Serum 7.2 g/dl (6.3-8.2)
[2024-12-29 12:12] LABS: Ferritin 15.3 ng/ml (17.9-464)
== END 2024-12-29 23:59 | disposition home or self-care (01) ==
LOC: LAB 10:02
PROVIDERS: PCP Internal Medicine Adolescent Medicine; Visit Provider Internal Medicine Medical Oncology
DX: E83.110 Hereditary hemochromatosis (principal)
CPT/HCPCS: 36415; 80053; 82728; 85025

== ENCOUNTER 2025-03-10 11:47 | Day surgery (SDC) | payer MEDICARE, OTHER, SELFPAY ==
[2025-03-05 13:22] VITALS: BMI 31.1
--- NOTE | 2025-03-09 17:28 | EXP.HP ---
History of Present Illness *Admission Date: 03/10/25 *History of present illness: Mr. Willett is a 65-year-old gentleman who is here for diagnostic colonoscopy secondary to iron deficiency anemia. The patient does have a history of hemochromatosis and does phlebotomy every 3 months. His last colonoscopy was 8 years ago and was normal (in [facility]). The examination is deemed medically necessary for diagnostic colonoscopy. The patient has been seen, interviewed and examined prior to the procedure by both myself and the anesthesia provider. [facility] Disclaimer: The information contained in this section may have been updated after the patient was seen, as this information can be updated by other users. Medical History (Updated 03/10/25 @ 13:21 by Aguila Quevedo II, MD) Encounter for pre-operative cardiovascular clearance Partial traumatic amputation of lesser toe of right foot Abscess of second toe, left Myocardial infarction GERD (gastroesophageal reflux disease) T2DM (type 2 diabetes mellitus) Atherosclerotic heart disease MRSA (methicillin resistant staph aureus) culture positive Abnormal cardiovascular stress test Encounter for pre-operative cardiovascular clearance Abnormal EKG HLD (hyperlipidemia) HTN (hypertension) Hx of myocardial infarction CAD (coronary artery disease) Surgical History (Updated 03/10/25 @ 12:07 by Nicole Pace RN) H/O nasal septoplasty Hx of cataract surgery H/O heart artery stent H/O cardiac catheterization H/O arthroscopy of left knee Family History Other Asthma Heart attack Social History (Updated 03/10/25 @ 12:08 by Nicole Pace RN) Smoking Status: Never smoker second hand exposure: Yes alcohol intake: never substance use type: denies use current occupational status: retired Travel in the last 8 weeks?: None household members: spouse and family housing: house caffeine: Yes Have you lived/traveled outside [place] in past 30 days?: No Contact w/someone who lives/traveled outside US past 30 days?: No Exposure to someone with infectious disease in past 14 days?: No Do you have a fever (greater than 100.4 F or 38 C)?: No Have you tested positive for COVID-19?: No Exposed to someone with COVID-19 in past 14 days?: No Do you have a sore throat?: No Do you have a cough?: No Do you have any weakness?: No Are you experiencing any nausea/vomitting?: No Do you have any diarrhea?: No Are you experiencing any unusual bleeding?: No Do you have any muscle aches/pain?: No Do you have any abdominal pain?: No Are you experiencing loss of taste or smell?: No Other Medical History Have you received the Flu Vaccine for this season: Yes Have you received the Pneumonia Vaccine: Yes Review of Systems Review of Systems Review of systems (narrative): Negative *Cardiovascular Comments: Negative *Gastrointestinal Comments: Negative *Genitourinary Comments: Negative *Musculoskeletal Comments: Negative *Neurologic Comments: Negative Meds Home Medications and Allergies Home Medications ?Medication ?Instructions ?Recorded ?Confirmed ?Type aspirin 81 mg tablet,delayed 81 mg PO DAILY HEART HEALTHY 08/28/21 03/10/25 History release (Adult Low Dose Aspirin) atorvastatin 80 mg tablet 80 mg PO DAILY Cholesterol 10/05/21 03/10/25 History empagliflozin 25 mg tablet 25 mg PO DAILY Diabetes 10/05/21 03/10/25 History (Jardiance) tramadol 50 mg tablet 50 mg PO BID Pain 03/06/23 03/10/25 History blood sugar diagnostic (Accu-Chek #10 ea 05/17/23 03/05/25 History Guide test strips) ropinirole 2 mg tablet 2 mg PO TID . 01/06/24 03/10/25 History trazodone 100 mg tablet 100 mg PO HS PRN Sleep 01/06/24 03/10/25 History ticagrelor 60 mg tablet (Brilinta) See Rx Instructions .Route 06/08/24 03/10/25 Rx .COMPLEX #180 tabs lancets (Accu-Chek Softclix #100 ea 09/21/24 03/05/25 History Lancets) mupirocin 2 % topical ointment See Rx Instructions .Route 10/12/24 03/10/25 Rx .COMPLEX #22 grams ammonium lactate 12 % topical cream 1 applic topical BID dry skin, 12/18/24 03/10/25 Rx callus care 30 days #385 grams levothyroxine 50 mcg tablet 50 mcg PO DAILY 01/06/25 03/10/25 History (Synthroid) sodium,potassium,mag sulfates 17.5 See Rx Instructions PO .COMPLEX 02/24/25 03/10/25 Rx gram-3.13 gram-1.6 gram oral soln #354 mL (Suprep Bowel Prep Kit) New Prescriptions to Start Prescriptions: Allergies Allergy/AdvReac Type Severity Reaction Status Date / Time NSAIDS (Non-Steroidal AdvReac Other Verified 03/10/25 12:02 Anti-Inflamma Exam *Routine HEENT Exam Head: Present normocephalic Eye: Present EOMI and PERRL ENT: Present mucous membranes moist *Routine Neck Exam Neck: Present supple *Routine Respiratory Exam Respiratory: Present CTA bilaterally *Routine Cardiovascular Exam Cardiovascular: Present RRR *Routine Abdominal Exam Abdominal: Present soft and normoactive bowel sounds; Absent tenderness *Routine Rectal Exam Rectal:: deferred *Routine Genitalia Exam Genitalia:: deferred *Routine Extremities Exam Extremities: Absent cyanosis, clubbing or edema *Routine Skin Exam Skin: Present warm; Absent rash *Routine Neurological Exam Neurological: Present alert and oriented X3 Assessment and Plan *Assessment and plan (1) Iron deficiency: Status: Acute Category: Medical Code(s): E61.1 - Iron deficiency Plan A/P: 1. Iron deficiency is the preprocedural diagnosis. The patient will be anesthetized/sedated using MAC sedation. The patient has been seen and examined. Cardiac and lung assessment prior to the examination is stable. Proceed with planned diagnostic colonoscopy.
[2025-03-10 12:05] VITALS: BP 159/77; PULSE 59; RESP 16; TEMP 36.1; O2SAT 98
[2025-03-10] MEDS: LACTATED RINGERS 1000ML 1,000 ML 50 ML IV (12:16)
--- NOTE | 2025-03-10 13:00 | P.PNANES_ITS ---
[facility] Disclaimer: The information contained in this section may have been updated after the patient was seen, as this information can be updated by other users. Medical History Encounter for pre-operative cardiovascular clearance Partial traumatic amputation of lesser toe of right foot Abscess of second toe, left Myocardial infarction GERD (gastroesophageal reflux disease) T2DM (type 2 diabetes mellitus) Atherosclerotic heart disease MRSA (methicillin resistant staph aureus) culture positive Abnormal cardiovascular stress test Encounter for pre-operative cardiovascular clearance Abnormal EKG HLD (hyperlipidemia) HTN (hypertension) Hx of myocardial infarction CAD (coronary artery disease) Surgical History (Updated 03/10/25 @ 12:07 by Nicole Pace RN) H/O nasal septoplasty Hx of cataract surgery H/O heart artery stent H/O cardiac catheterization H/O arthroscopy of left knee Family History Other Asthma Heart attack Social History (Updated 03/10/25 @ 12:08 by Nicole Pace RN) Smoking Status: Never smoker second hand exposure: Yes alcohol intake: never substance use type: denies use current occupational status: retired Travel in the last 8 weeks?: None household members: spouse and family housing: house caffeine: Yes Have you lived/traveled outside US in past 30 days?: No Contact w/someone who lives/traveled outside US past 30 days?: No Exposure to someone with infectious disease in past 14 days?: No Do you have a fever (greater than 100.4 F or 38 C)?: No Have you tested positive for COVID-19?: No Exposed to someone with COVID-19 in past 14 days?: No Do you have a sore throat?: No Do you have a cough?: No Do you have any weakness?: No Are you experiencing any nausea/vomitting?: No Do you have any diarrhea?: No Are you experiencing any unusual bleeding?: No Do you have any muscle aches/pain?: No Do you have any abdominal pain?: No Are you experiencing loss of taste or smell?: No [facility] Anesthesia Checklist Patient Identification Patient Identification: Arm Band Structural Data Admitted From: Home Planned Operative Procedure/s: Colonoscopy Consent for Planned Operative Procedure(s) Verified: Yes Verified Documents: Surgical Consent and History and Physical NPO Status Verified Time NPO: 00:00 Additional verifications Anesthesia Reactions: No Hx Blood Transfusions: No Blood Transfusion Reaction: No Airway Assessment Mallampati Score:: Class II C-Spine Mobility Assessed: Yes TMJ Mobility Assessed: Yes Dentition: Good Dentition Neurological Assessment Level of Consciousness: Awake, Alert and Appropriate Anesthesia Plan Anesthesia Risk discussed: Yes Anesthesia Plan: Verified ASA Class: III Anesthesia Type: MAC
--- NOTE | 2025-03-10 13:21 | P.PCN_ITS ---
[facility] Procedure Note Date: 03/10/25 Time: 13:21 Procedure Note:: Colonoscopy Procedure Report: Colonoscopy with cold snare polypectomy Endoscopist: Aguila Quevedo II, MD Referring physician: Karlo Rangel MD/Vasiliy Espinoza M.D. Date of Procedure: March 10, 2025 Equipment: Olympus [id number] adult colonoscope Sedation: MAC sedation Indication: Mr. Willett is a 65-year-old gentleman who is referred by hematology secondary to iron deficiency. The patient does have a history of hereditary hemochromatosis and does have phlebotomy every 3 months. At time of last phlebotomy, he had low iron/iron deficiency. He reports no abdominal pain, weight loss, change in his bowel habits or rectal bleeding. He reports no family history of colon cancer. His last colonoscopy 8 years ago (in [facility]) was normal. Procedure: Prior to the procedure, a history and physical exam was performed, and patient's medications and allergies were reviewed. The risks, benefits and alternatives of the sedation and procedure were discussed with the patient. All questions were answered and informed consent was obtained. The patient was brought to the procedure room. Patient identification and proposed procedure were verified by the physician and the nurse. The patient was placed in a left lateral decubitus position and the scope was passed under direct vision. Throughout the procedure, the patient's blood pressure, pulse, and oxygen saturations were monitored continuously. The colonoscopy was accomplished without difficulty. The patient tolerated the procedure well. Findings: On digital rectal examination there was normal rectal tone. There were no external hemorrhoids. The prostate was 2+, smooth, soft, symmetric without nodules. The colonoscope was introduced through the anal canal to the rectum and advanced to the cecum. The ileocecal valve and appendiceal orifice were identified. The scope was advanced a short distance into the ileum which appeared grossly normal. The scope was then withdrawn into the colon. There were 4 colon polyps (cecum x 1 (7 mm), ascending x 2 (3 and 4 mm) and sigmoid x 1 (3 mm)). These were all removed via cold snare polypectomy. The remaining cecum, ascending and transverse colon and mucosa were grossly normal. There were scattered diverticuli throughout the descending and sigmoid colon (LEFT colon). The rectum itself was normal. Upon retroflexion within the rectum there were grade 2 internal hemorrhoids. The preparation was excellent throughout with [place] Preparation Score of 9. The cecal time was 12 minutes. Impression: 1. Diminutive colonic polyps x 4 2. Left-sided diverticulosis 3. Grade 2 internal hemorrhoids Plan: I will follow-up the polyp histology and recommend repeat screening/surveillance colonoscopy again in 5 years if the polyps are adenomatous. I would encourage psyllium bulking fiber supplementation on a maintenance basis.
[2025-03-10 13:22] VITALS: BP 101/57; PULSE 58; RESP 17; TEMP 36.1; O2SAT 95
[2025-03-10 13:32] VITALS: BP 97/63; PULSE 53; RESP 18; TEMP 36.1; O2SAT 97
[2025-03-10 13:42] VITALS: BP 104/58; PULSE 50; RESP 18; TEMP 36.1; O2SAT 98
[2025-03-10 13:52] VITALS: BP 112/74; PULSE 50; RESP 17; TEMP 36.1; O2SAT 98
[2025-03-10 15:02] LABS: POC Glucose,Bedside 81 gm/dL (70-110)
== END 2025-03-10 14:10 | disposition home or self-care (01) ==
PROVIDERS: PCP Internal Medicine Adolescent Medicine; Visit Provider Internal Medicine Gastroenterology
PROC: 0DJD8ZZ Inspection of Lower Intestinal Tract, Via Natural or Artificial Opening Endoscopic (ICD-10-PCS; CPT 45378; principal; 2025-03-10 15:00)
DX: D12.0 Benign neoplasm of cecum; D12.2 Benign neoplasm of ascending colon; K63.5 Polyp of colon; K57.30 Diverticulosis of large intestine without perforation or abscess without bleeding; K64.1 Second degree hemorrhoids; Z79.82 Long term (current) use of aspirin; Z79.899 Other long term (current) drug therapy; Z79.890 Hormone replacement therapy; Z79.84 Long term (current) use of oral hypoglycemic drugs; Z88.6 Allergy status to analgesic agent; E11.9 Type 2 diabetes mellitus without complications; E78.5 Hyperlipidemia, unspecified; I10 Essential (primary) hypertension; I25.10 Atherosclerotic heart disease of native coronary artery without angina pectoris; I25.2 Old myocardial infarction; K21.9 Gastro-esophageal reflux disease without esophagitis; Z79.891 Long term (current) use of opiate analgesic; E61.1 Iron deficiency
CPT/HCPCS: 45385; 82962; 88305; J2003; J2704; J7120

== ENCOUNTER 2025-07-12 08:42 | Outpatient (CLI) | payer MEDICARE, OTHER, SELFPAY ==
--- OUTSIDE RECORDS SUMMARY | 2024-08-15 16:30 | XMS_ITS ---
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 Name Role Phone MAURICE ALVAREZ Unavailable [phone] Ty Anand MD Unavailable Unavailable Migration, Provider Unavailable Un[facility] Conversion Encounter Medications Medication SIG (Take, Route, Frequency, Duration) Notes Start Date End Date Status Flonase Allergy Relief 50 MCG/ACT 2 spray(s) intranasally once a day; Duration: 30 Active ZyrTEC Allergy 10 MG 1 tab(s) orally onc e a day; Duration: 30 Active predniSONE 10 MG 2 Tabs orally once a day; Duration: 7 days 04/24/2017 Active Encounters Encounter Location Date Provider Diagnosis [facility] [address] [facility] [address] [place] [id number] 08/15/2024 Provider Migration Mixed conductive and sensorineural hearing loss, unilateral, 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 Assessments Encounter Date Diagnosis (ICD Code) Assessment Notes Treatment Notes Treatment Clinical Notes Section Notes 08/15/2024 Mixed conductive and sensorineural hearing loss, unilateral, right ear with restricted hearing on the contralateral side (ICD-10 - H90.A31) Plan Of Treatment Medication Medication Name Sig Start Date Stop Date Notes Flonase Allergy Relief 50 MCG/ACT 2 spray(s) intranasally once a day; Duration: 30 ZyrTEC Allergy 10 MG 1 tab(s) orally onc e a day; Duration: 30 predniSONE 10 MG 2 Tabs orally once a day; Duration: 7 days 04/24/2017 Progress Notes * JIGNESH FITZGERALDOB:1960 (65 yo M)Acc No.[id number]:08/15/2024 Patient: ARIN LAIRD Provider: Abner Simons :1960 A ge:64 Y S ex:Male Date:08/15/2024 Address:[facility] [address] [id number] Subjective: * Chief Complaints: * [facility] . [facility] * Medical History: Objective: * Vitals: Assessment: * Assessment: 1. M ixed conductive and sensorineural hearing loss, unilateral, right ear with restricted hearing on the contralateral side - H90.A31 (Primary) Plan: * Treatment: 2. O thers Start ZyrTEC Allergy Tablet, 10 MG, 1 tab(s), orally, once a day, 30, 30 Tablet, Refills 2; S tart Flonase Allergy Relief Suspension, 50 MCG/ACT, 2 spray(s), intranasally, once a day, 30, 1 Horner, Refills 2. * Images: Billing Information: * Visit Code: * Procedure Codes: * Electronic signature of Prov ider Migration on 07/12/2025 at 08:45 AM EST Sign off status: Pending * Provider: Abner Simons Date: 0 08/15/2024 Generated for Ady bautista/Wm/Nancyitting on: 1 08:45 AM EST
--- OUTSIDE RECORDS SUMMARY | 2025-07-12 08:46 | XMS_ITS | Patient Health Record ---
Author Organization [facility] Address [address] [place] [address] Care Team Providers Care Consulting Sales Manager Name Role Phone MAURICE ALVAREZ Unavailable [phone] Ty Anand MD Unavailable Unavailable Migration, Provider [...] a day; Duration: 7 days 04/24/2017 Active Social History Tobacco Use: Social History Observation Description Date Details (start date - stop date) Never Smoker NA - NA Smoking status: Question Answer Notes Are you a: nonsmoker Problems Problem Type SNOMED Code ICD Code Onset Dates Problem Status W/U Status Risk Notes Problem Acute serous otitis media of left ear (7349739083524606 ) Acute serous otitis media, left ear (H65.02) Active confirmed Problem 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 (disorder) (3104625512) Mixed conductive and sensorineural hearing loss, unilateral, left ear, with unrestricted hearing on the contralateral side (H90.72) Active confirmed Problem Sensorineural hearing loss (28200678) SNHL (sensory-neural hearing loss), unilateral (H90.5) Active confirmed Problem Dysfunction of both eustachian tubes (1417372043864483 ) Dysfunction of both eustachian tubes (H69.83) Active confirmed Problem Dizziness (967896135) Dizziness (R42) Active confirmed Problem Bilateral tinnitus (4279067222145) Tinnitus of both ears (H93.13) Active confirmed Problem Mixed conductive and sensorineural hearing loss, unilateral, right ear with restricted hearing on the contralateral side (H90.A31) Active confirmed Encounters Encounter Location Date Provider Diagnosis [facility] [address] [place] [address] 08/15/2024 Provider Migration Mixed conductive and sensorineural [...] Insured Coverage Start Date Coverage End Date [facility] [employer] [address] [place] [address] [id number] ARIN FITZGERALD Self - patient is the insured Medical (General) History Medical History History ICD Code HEARING LOSS BOTH RINGING IN EARS LEFT DIFFICULTY HEARING IN NOISY ENVIRONMENTS BALANCE PROBLEMS INABILITY TO SMELL SEASONAL ALLERGIES Surgical History Surgery Date(Month/Year) NASAL SURGERY 2000 KNEE 2017
[2025-07-12 08:57] LABS: Hematocrit 46.5 % (42.0-52.0); Hemoglobin 15.7 g/dL (14.1-18.0); Immature Granulocytes % 0.2 %; Mean Corpuscular HGB Conc 33.8 g/dL (31.8-35.4); Mean Corpuscular Hemoglobin 30.5 pg (27.0-31.2); Mean Corpuscular Volume 90.3 fl (80-94); Nucleated Red Blood Cells % 0 %; Platelet Count 209 K/mm3 (142-424); Red Blood Count 5.15 M/mm3 (4.60-6.20); Red Cell Distribution Width-SD 40.4 fL; White Blood Count 6.3 K/mm3 (4.8-10.8)
[2025-07-12 09:22] LABS: Albumin Level 4.5 g/dl (3.5-5.0); Chloride 104 mmol/L (98-107); Potassium 4.0 mmoL/L (3.5-5.1); Sodium 140 mmol/L (136-145)
[2025-07-12 09:25] LABS: Alanine Aminotransferase 42 U/L (12-78); Albumin/Globulin Ratio 1.5 (1.1-1.8); Alkaline Phosphatase 75 U/L (38-126); Anion Gap 13.0 mEq/L (5-15); Aspartate Amino Transferase 38 U/L (17-59); Bilirubin,Total 0.8 mg/dl (0.2-1.3); Blood Urea Nitrogen 26 mg/dl (9-20); Calcium 9.6 mg/dl (8.4-10.2); Carbon Dioxide 27 mmol/L (22.0-30.0); Creatinine,Serum 1.00 mg/dl (0.66-1.25); Estimated Glomerular Filt Rate 75 ml/min (>60); GFR (African American) 90 ML/MIN (>60); Globulin 3.0 g/dL (1.3-3.2); Glucose 96 mg/dl (74-100); Total Protein,Serum 7.5 g/dl (6.3-8.2)
[2025-07-12 09:59] LABS: Ferritin 28.4 ng/ml (17.9-464)
== END 2025-07-12 23:59 | disposition home or self-care (01) ==
LOC: LAB 08:43
PROVIDERS: PCP Internal Medicine Adolescent Medicine; Visit Provider Internal Medicine Medical Oncology
DX: E83.110 Hereditary hemochromatosis (principal)
CPT/HCPCS: 36415; 80053; 82728; 85025